=== PATIENT | female | born 1995 | race American Indian/Alaskan Native ===

== ENCOUNTER 2016-08-26 19:49 | Emergency (ER) | payer MEDICAID ==
[2016-08-26] MEDS ORDERED: ATIVAN ONE ×4 (20:30→22:26)
[2016-08-26] MEDS ORDERED: KEPPRA 1,000 MG/NS 0.75% 100ML 1,000 MG/100 ML BAG IV ONE (23:05)
== END 2016-08-26 23:15 | disposition left against medical advice (07) ==
LOC: ED 19:49 → MERGE 19:49 → ED 23:15
DX: Z00.8 Encounter for other general examination (principal); Z53.21 Procedure and treatment not carried out due to patient leaving prior to being seen by health care provider
CPT/HCPCS: J1953; J2060

== ENCOUNTER 2016-12-06 19:41 | Emergency (ER) | payer MEDICAID | END 2016-12-06 20:15 | disposition left against medical advice (07) | LOC: ED 19:41 | DX: M79.669 Pain in unspecified lower leg (principal); Z53.21 Procedure and treatment not carried out due to patient leaving prior to being seen by health care provider ==

== ENCOUNTER 2017-03-28 19:18 | Emergency (ER) | payer SELFPAY | END 2017-03-28 20:40 | disposition left against medical advice (07) | LOC: ED 19:18 | DX: R10.9 Unspecified abdominal pain (principal); Z53.21 Procedure and treatment not carried out due to patient leaving prior to being seen by health care provider ==

== ENCOUNTER 2017-05-15 16:55 | Emergency (ER) | payer SELFPAY ==
[2017-05-15 17:19] VITALS: BP 130/57
[2017-05-15 19:21] LABS: Bilirubin,Urine NEG (Negative); Blood,Urine NEG (Negative); Color,Urine Yellow (Yellow); Mucus,Urine FEW /HPF; Protein,Urine <15 mg/dL mg/dL (Negative); Urobilinogen,Urine < 2.0 mg/dL (<2.0)
[2017-05-15 19:25] LABS: HCG Qualitative,Urine Positive (Negative)
[2017-05-15] MEDS ORDERED: ZOFRAN ODT ONE (19:42)
--- NOTE | 2017-05-15 19:47 | Emergency Department Report ---
Vomiting/Diarrhea - HPI Chief Complaint: Nausea/Vomiting/Diarrhea Stated Complaint: N/V/D Time Seen by Provider: 05/15/17 19:22 Duration: 1 week Severity: mild Nausea/Vomiting Severity: Mild Diarrhea Severity: None Pain Severity: None Symptoms: Yes Able to Tolerate Fluids, No Watery Diarrhea, No Bloody diarrhea, No Fever, No Recent Unusual Foods, No Recent Untreated Water, No Recent use of Antibiotics, No Family w/ Similar Symptoms, No Contacts w/ Similar Symptoms, No Rash, No Hematuria, No Recent URI Symptoms Other History: This is a 22 y.o. female that presents with nausea and mild abdominal pain for 1 week. She took a test at home and it was positive. She think this could possibly be food poisioning because with both pregnancies she never had nausea w/o vomiting. She tried to f/u with [facility] and they would see her. She just saw them in March 2017 for PAP. LMP 2016. . Deneis vomiting, fever, chest pain, frequency, and urgency. ED Review of Systems ROS: Stated complaint: N/V/D Other details as noted in HPI Constitutional: denies: chills, fever Respiratory: denies: cough, shortness of breath, wheezing Cardiovascular: denies: chest pain, palpitations Gastrointestinal: abdominal pain, nausea. denies: vomiting, diarrhea, constipation Neurological: denies: headache, weakness, paresthesias ED Past Medical Hx - Past Medical History Previous Medical History?: Yes Hx Hypertension: No Hx Congestive Heart Failure: No Hx Diabetes: No Hx Deep Vein Thrombosis: No Hx Renal Disease: No Hx Sickle Cell Disease: No Hx Seizures: Yes Hx Psychiatric Treatment: (Anxiety) Hx Asthma: No Hx COPD: No Hx Dementia: No Hx HIV: No Additional medical history: vaginal delivery 2013, 2015 - Surgical History Past Surgical History?: No Additional Surgical History: unknown, no visible scars - Social History Smoking Status: Former Smoker Substance Use Type: Non Opiate Pain - Medications Home Medications: Home Medications Medication Instructions Recorded Confirmed Last Taken Type QUEtiapine [SEROquel] 200 mg PO QHS #30 tablet 08/29/16 Unknown Rx Sertraline [Zoloft] 50 mg PO QDAY #30 tablet 08/29/16 Unknown Rx Naproxen [Naprosyn TAB] 500 mg PO BID PRN #12 tablet 01/19/17 Unknown Rx Ondansetron [Zofran Odt] 4 mg PO Q8HR PRN #20 tab.rapdis 05/15/17 Unknown Rx Vomiting Diarrhea Exam - Exam General: Vital signs noted. No distress. Alert and acting appropriately. HEENT: Yes Moist Mucous Membranes, No Pharyngeal Erythema, No Pharyngeal Exudates, No Rhinorrhea, No Conjuctival Injection, No Frontal Tenderness, No Maxillary Tenderness Neck: No Adenopathy, No Rigidity Lungs: Yes Clear Lung Sounds, No Good Air Exchange, No Wheezes, No Stridor, No Cough, No Nasal Flaring, No Retractions, No Use of Accessory Muscles Heart exam: Regular: Yes, Murmur: No, Tachycardia: No Abdomen: Tenderness: No, Peritoneal Signs: No, Distention: No, Hyperactive Bowel sounds: No Skin exam: Rash: No, Edema: No, Normal turgor: Yes Neurologic: Alert and oriented, no deficits. Musculoskeletal: Unremarkable. ED Course Vital Signs 05/15/17 17:05 Temperature 98.3 F Pulse Rate 83 Respiratory 16 Rate Blood Pressure 130/57 O2 Sat by Pulse 99 Oximetry ED Medical Decision Making - Lab Data Result diagrams: 05/15/17 20:03 05/15/17 20:03 - Medical Decision Making This is a 22 y.o. female that presents with nausea and mild abdominal pain for 1 week. Home test positive. Patient concerned of possibly being food pensioned. Patient was examined by me. Obtained BMP, CBC, UA, and urine HCG. Positive HCG all other labs normal. Discussed results with patient. Given zofran odt 4 mg po in ER. Discharged home in stable condition. Start zofran 4 mg odt po . F/U with [facility]. Critical care attestation.: If time is entered above; I have spent that time in minutes in the direct care of this critically ill patient, excluding procedure time. ED Disposition Clinical Impression: confirmed by positive urine test, Nausea without vomiting Disposition: DC-01 TO HOME OR SELFCARE Is pt being admited?: No Does the pt Need Aspirin: No Condition: Stable Instructions: (ED), Morning Sickness (ED) Additional Instructions: Take zofran for nausea symptoms. Eat small frequent meals to avoid an empty stomach. Eat a snack before getting out of bed. Drink fluids 30 minutes before eating or 30 minutes after eating a meal. Incorporate rajendra into drinks or food (rajendra lollipops, rajendra tea, foods made with rajendra root or tea). Follow up with [facility] in 24-72 hours. Prescriptions: Ondansetron [Zofran Odt] 4 mg PO Q8HR PRN #20 tab.rapdis PRN Reason: Nausea Referrals: [facility] [Provider Group] - 3-5 Days SPARKLE KIRKLAND MD [Staff Physician] - 3-5 Days Time of Disposition: 20:34 Print Language: KOREAN
[2017-05-15] MEDS ORDERED: ZOFRAN ODT PO ONE (19:51)
[2017-05-15 20:15] LABS: Basophils % (Auto) 0.5 % (0.0-1.8); Eosinophils # (Auto) 0.3 K/mm3 (0.0-0.4); Eosinophils % (Auto) 3.1 % (0.0-4.3); Hematocrit 39.2 % (30.3-42.9); Hemoglobin 12.8 gm/dl (10.1-14.3); Lymphocytes # (Auto) 2.4 K/mm3 (1.2-5.4); Lymphocytes % (Auto) 26.1 % (13.4-35.0); Mean Corpuscular HGB Conc 33 % (30-34); Mean Corpuscular Hemoglobin 28 pg (28-32); Mean Corpuscular Volume 86 fl (79-97); Monocytes # (Auto) 0.6 K/mm3 (0.0-0.8); Monocytes % (Auto) 6.6 % (0.0-7.3); Platelet Count 287 K/mm3 (140-440); Red Blood Count 4.55 M/mm3 (3.65-5.03); Red Cell Distribution Width 14.3 % (13.2-15.2)
[2017-05-15 20:25] LABS: BUN/Creatinine Ratio 15; Blood Urea Nitrogen 9 mg/dL (7-17); Calcium 9.3 mg/dL (8.4-10.2); Hemolysis Index 10
== END 2017-05-15 20:42 | disposition home or self-care (01) ==
LOC: ED 16:55
DX: Z32.01 Encounter for pregnancy test, result positive (principal); R11.0 Nausea; F41.9 Anxiety disorder, unspecified; Z87.891 Personal history of nicotine dependence
CPT/HCPCS: 36415; 80048; 81001; 81025; 85025; 99283; Q0162

== ENCOUNTER 2017-05-26 23:55 | Emergency (ER) | payer SELFPAY ==
[2017-05-27 00:02] VITALS: BP 123/66
[2017-05-27 00:39] LABS: Bilirubin,Urine NEG (Negative); Blood,Urine NEG (Negative); Color,Urine Yellow (Yellow); Mucus,Urine FEW /HPF; Protein,Urine <15 mg/dL mg/dL (Negative); Urobilinogen,Urine < 2.0 mg/dL (<2.0)
[2017-05-27 00:45] LABS: Basophils # (Auto) 0.1 K/mm3 (0.0-0.1); Basophils % (Auto) 0.7 % (0.0-1.8); Eosinophils # (Auto) 0.2 K/mm3 (0.0-0.4); Eosinophils % (Auto) 2.8 % (0.0-4.3); Hematocrit 37.5 % (30.3-42.9); Hemoglobin 12.5 gm/dl (10.1-14.3); Lymphocytes # (Auto) 2.1 K/mm3 (1.2-5.4); Lymphocytes % (Auto) 23.8 % (13.4-35.0); Mean Corpuscular HGB Conc 34 % (30-34); Mean Corpuscular Hemoglobin 28 pg (28-32); Mean Corpuscular Volume 85 fl (79-97); Monocytes # (Auto) 0.6 K/mm3 (0.0-0.8); Platelet Count 275 K/mm3 (140-440); Red Blood Count 4.42 M/mm3 (3.65-5.03); Red Cell Distribution Width 14.8 % (13.2-15.2)
[2017-05-27 00:50] LABS: Alanine Aminotransferase 8 units/L (7-56); Albumin 3.9 g/dL (3.9-5); BUN/Creatinine Ratio 13; Blood Urea Nitrogen 8 mg/dL (7-17); Calcium 9.6 mg/dL (8.4-10.2); Hemolysis Index 2
== END 2017-05-27 03:30 | disposition left against medical advice (07) ==
LOC: ED 23:55
DX: O26.891 Other specified pregnancy related conditions, first trimester (principal); R10.2 Pelvic and perineal pain; O20.9 Hemorrhage in early pregnancy, unspecified; Z3A.10 10 weeks gestation of pregnancy
CPT/HCPCS: 36415; 80053; 81001; 84702; 85025; 86850; 86900; 86901

== ENCOUNTER 2017-06-10 15:52 | Emergency (ER) | payer MEDICAID ==
[2017-06-10 19:58] VITALS: BP 112/64
--- NOTE | 2017-06-10 20:15 | Emergency Department Report ---
Chief Complaint: Abdominal Pain Stated Complaint: 12 WKS PREG/ABD PAIN - HPI History of Present Illness: 22F p/w c/o lower abd cramping pain radiating to back, slight discharge as per pt for 2 weeks. Denies current bleeding. intermittent nausea - ROS Review of Systems: 12 weeks by LMP - Exam Vital Signs: Vital Signs 06/10/17 19:52 Temperature 97.5 F L Pulse Rate 80 Respiratory 20 Rate Blood Pressure 112/64 O2 Sat by Pulse 98 Oximetry Physical Exam: heart s1s2, AA0x3 MSE screening note: Focused history and physical exam performed. Due to findings the following was ordered: Screening Assessment/Plan/Differential Dx: Lower abdominal pain in 1- This initial assessment/diagnostic orders/clinical plan/ treatment(s) is/are subject to change based on pt's health status, clinical progression and re- assessment by fellow clinical providers in the ED. Further treatment and workup at subsequent clinical provers discretion. Patient/guardians urged not to elope from ED as their condition may be serious if not clinically assessed and managed. 2-basic labs, urinalysis, pelvic ultrasound transvaginal 3-patient has not yet had an ultrasound during this will obtain ultrasound today ED Disposition for MSE Condition: Stable Instructions: Abdominal Pain (ED)
[2017-06-10 20:17] LABS: Hematocrit 38.1 % (30.3-42.9); Hemoglobin 12.4 gm/dl (10.1-14.3); Mean Corpuscular HGB Conc 33 % (30-34); Mean Corpuscular Hemoglobin 28 pg (28-32); Mean Corpuscular Volume 86 fl (79-97); Platelet Count 286 K/mm3 (140-440); Red Blood Count 4.45 M/mm3 (3.65-5.03); Red Cell Distribution Width 14.3 % (13.2-15.2)
[2017-06-10 20:30] LABS: BUN/Creatinine Ratio 8; Blood Urea Nitrogen 5 mg/dL (7-17); Calcium 9.1 mg/dL (8.4-10.2); Hemolysis Index 20
[2017-06-10 23:08] LABS: Bacteria,Urine 1+ /HPF (Negative); Bilirubin,Urine NEG (Negative); Blood,Urine NEG (Negative); Color,Urine Yellow (Yellow); Mucus,Urine 3+ /HPF; Protein,Urine <15 mg/dL mg/dL (Negative)
--- NOTE | 2017-06-11 00:27 | Ultrasound Report ---
FINAL REPORT EXAM: US OB TRANSVAGINAL HISTORY: Pelvic pain w/ discharge TECHNIQUE: Transvaginal imaging was obtained of the pelvis. Doppler interrogation of the uterus and adnexa was obtained. FINDINGS: The uterus is anteverted measuring 11.7 cm x 6.9 cm x 8.4 cm. Within the uterus is a gestational sac which contains an embryo. There is also yolk sac. The crown-rump length is 29.8 mm. This corresponds to a 9 week 6 day IUP. The heart rate is 169 BPM. The cervix is closed. Free fluid is not seen. The left ovary is normal size contour blood flow and echotexture measuring 2.4 cm x 1.5 cm x 2.4 cm. The right ovary measures 3.3 cm x 1.7 cm x 2.6 cm. Within the right ovary is a hemorrhagic cyst measuring 1.7 cm in diameter compatible with corpus luteum cyst. IMPRESSION: Single viable IUP, 9 weeks 6 days. heart rate is 169 BPM. Right corpus luteum cyst measuring 1.7 cm in diameter. No evidence of free fluid.
--- NOTE | 2017-06-11 00:29 | Ultrasound Report ---
FINAL REPORT EXAM: US OB < = 14 WEEKS FETUS HISTORY: Pelvic pain w/ discharge TECHNIQUE: Transabdominal imaging was obtained of the pelvis. Doppler interrogation of the uterus and adnexa was obtained. FINDINGS: The uterus is anteverted measuring 11.7 cm x 6.9 cm x 8.4 cm. Within the uterus is a gestational sac which contains a pole and yolk sac. The crown-rump length is 28.9 mm corresponding to a 9 week 6 day IUP. The heart rate is 169 BPM. The cervix is closed. There is no evidence of subchorionic hemorrhage. The left ovary is normal size contour blood flow and echotexture measuring 2.4 cm x 1.5 cm x 2.4 cm. The right ovary measures 3.3 cm x 1.7 cm x 2.6 cm. Within the right ovary is a hemorrhagic cyst measuring 1.7 cm diameter compatible with a corpus luteum cyst. Free fluid is not seen IMPRESSION: Single viable IUP, nine weeks 6 days. The heart rate is 169 BPM. The cervix is closed. No evidence of free fluid. Right ovarian corpus luteum cyst measuring 1.7 cm in diameter.
--- NOTE | 2017-06-11 03:10 | Emergency Department Report ---
ED Female HPI - General Chief complaint: Abdominal Pain Stated complaint: 12 WKS PREG/ABD PAIN Time Seen by Provider: 06/11/17 02:45 Source: patient Mode of arrival: Ambulatory Limitations: No Limitations - History of Present Illness Initial comments: 22-year-old female presents with complaint of vaginal discharge and slight spotting slight crampy lower abdominal pain. Patient is awake alert and oriented 3 not in acute distress fully lucid. Awake alert and oriented 3. Primarily complaining of discharge and crampy pain. Also states she has a white discharge. Denies passage of any clots. States she has had some intermittent nausea for the last few weeks but is tolerating by mouth fluid and food without difficulty now. Denies any fevers or chills. MD Complaint: vaginal discharge Onset/Timin -: days(s) Severity scale (0 -10): 4 Quality: cramping Consistency: intermittent Improves with: none Are you Now?: Yes Last Menstrual Period: 03/22/17 EDC: 12/27/17 Associated Symptoms: vaginal discharge - Related Data Sexually active: Yes : 4 Para: 2 Previous Rx's Medication Instructions Recorded Last Taken Type QUEtiapine [SEROquel] 200 mg PO QHS #30 tablet 08/29/16 Unknown Rx Sertraline [Zoloft] 50 mg PO QDAY #30 tablet 08/29/16 Unknown Rx Naproxen [Naprosyn TAB] 500 mg PO BID PRN #12 tablet 01/19/17 Unknown Rx Ondansetron [Zofran Odt] 4 mg PO Q8HR PRN #20 tab.rapdis 05/15/17 Unknown Rx Acetaminophen [Acetaminophen TAB] 500 mg PO Q6HR PRN #30 tablet 06/11/17 Unknown Rx Clotrimazole [3-Day Vaginal Cream] 21 gm VG QHS #1 cream.appl 06/11/17 Unknown Rx Rosa M Root [Rosa M] 250 mg PO TID PRN #1 bottle 06/11/17 Unknown Rx Vit No.129/Iron/Folic 1 each PO QDAY #30 tablet 06/11/17 Unknown Rx [ Tablet] metroNIDAZOLE [Metronidazole] 500 mg PO BID #14 tablet 06/11/17 Unknown Rx Allergies Allergy/AdvReac Type Severity Reaction Status Date / Time No Known Allergies Allergy Unverified 01/19/17 14:53 ED Review of Systems ROS: Stated complaint: 12 WKS PREG/ABD PAIN Other details as noted in HPI Constitutional: denies: chills, fever Eyes: denies: eye pain, eye discharge, vision change ENT: denies: ear pain, throat pain Respiratory: denies: cough, shortness of breath, wheezing Cardiovascular: denies: chest pain, palpitations Endocrine: no symptoms reported Gastrointestinal: denies: abdominal pain, nausea, diarrhea Genitourinary: discharge. denies: urgency, dysuria Musculoskeletal: denies: back pain, joint swelling, arthralgia Skin: denies: rash, lesions Neurological: denies: headache, weakness, paresthesias Psychiatric: denies: anxiety, depression Hematological/Lymphatic: denies: easy bleeding, easy bruising ED Past Medical Hx - Past Medical History Previous Medical History?: No Hx Hypertension: No Hx Congestive Heart Failure: No Hx Diabetes: No Hx Deep Vein Thrombosis: No Hx Renal Disease: No Hx Sickle Cell Disease: No Hx Seizures: Yes Hx Psychiatric Treatment: (Anxiety) Hx Asthma: No Hx COPD: No Hx Dementia: No Hx HIV: No Additional medical history: vaginal delivery 2013, 2015 - Surgical History Past Surgical History?: No Additional Surgical History: unknown, no visible scars - Social History Smoking Status: Former Smoker - Medications Home Medications: Home Medications Medication Instructions Recorded Confirmed Last Taken Type QUEtiapine [SEROquel] 200 mg PO QHS #30 tablet 08/29/16 Unknown Rx Sertraline [Zoloft] 50 mg PO QDAY #30 tablet 08/29/16 Unknown Rx Naproxen [Naprosyn TAB] 500 mg PO BID PRN #12 tablet 01/19/17 Unknown Rx Ondansetron [Zofran Odt] 4 mg PO Q8HR PRN #20 tab.rapdis 05/15/17 Unknown Rx Acetaminophen [Acetaminophen TAB] 500 mg PO Q6HR PRN #30 tablet 06/11/17 Unknown Rx Clotrimazole [3-Day Vaginal Cream] 21 gm VG QHS #1 cream.appl 06/11/17 Unknown Rx Rosa M Root [Rosa M] 250 mg PO TID PRN #1 bottle 06/11/17 Unknown Rx Vit No.129/Iron/Folic 1 each PO QDAY #30 tablet 06/11/17 Unknown Rx [ Tablet] metroNIDAZOLE [Metronidazole] 500 mg PO BID #14 tablet 06/11/17 Unknown Rx ED Physical Exam - General Limitations: No Limitations General appearance: alert, in no apparent distress - Head Head exam: Present: atraumatic, normocephalic - Eye Eye exam: Present: normal appearance, PERRL, EOMI - ENT ENT exam: Present: mucous membranes moist - Neck Neck exam: Present: normal inspection - Respiratory Respiratory exam: Present: normal lung sounds bilaterally. Absent: respiratory distress - Cardiovascular Cardiovascular Exam: Present: regular rate, normal rhythm. Absent: systolic murmur, diastolic murmur, rubs, gallop - GI/Abdominal GI/Abdominal exam: Present: soft, normal bowel sounds - External exam: Present: normal external exam Speculum exam: Present: vaginal discharge (White vaginal discharge no bleeding) Bi-manual exam: Present: normal bi-manual exam (no cervical motion or adnexal tenderness on exam) - Extremities Exam Extremities exam: Present: normal inspection - Back Exam Back exam: Present: normal inspection - Neurological Exam Neurological exam: Present: alert, oriented X3, CN II-XII intact, normal gait - Psychiatric Psychiatric exam: Present: normal affect, normal mood - Skin Skin exam: Present: warm, dry, intact, normal color. Absent: rash ED Course Vital Signs 06/10/17 06/11/17 19:52 04:07 Temperature 97.5 F L Pulse Rate 80 87 Respiratory 20 16 Rate Blood Pressure 112/64 O2 Sat by Pulse 98 99 Oximetry ED Medical Decision Making - Lab Data Result diagrams: 06/10/17 20:04 06/10/17 20:04 - Medical Decision Making A/P: Threatened miscarriage, vaginal candidiasis, bacterial vaginosis 1-empiric metronidazole and vaginal clotrimazole cream, wet prep shows BV and yeast 2-ultrasound shows IUP at 9 weeks, patient is Rh+ 3- vitamins, follow-up with [facility] 4-GC culture sent Critical care attestation.: If time is entered above; I have spent that time in minutes in the direct care of this critically ill patient, excluding procedure time. ED Disposition Clinical Impression: Vaginal bleeding during , Bacterial vaginosis, Yeast infection of the vagina Disposition: - TO HOME OR SELFCARE Is pt being admited?: No Does the pt Need Aspirin: No Condition: Stable Instructions: Threatened Miscarriage (ED), Bacterial Vaginosis (ED), Abdominal Pain (ED) Prescriptions: Clotrimazole [3-Day Vaginal Cream] 21 gm VG QHS #1 cream.appl Acetaminophen [Acetaminophen TAB] 500 mg PO Q6HR PRN #30 tablet PRN Reason: Pain Rosa M Root [Rosa M] 250 mg PO TID PRN #1 bottle PRN Reason: Nausea metroNIDAZOLE [Metronidazole] 500 mg PO BID #14 tablet Vit No.129/Iron/Folic [ Tablet] 1 each PO QDAY #30 tablet Referrals: [facility] [Provider Group] - 3-5 Days [facility] [Provider Group] - 3-5 Days Forms: STI Treatment and Prevention, Work/School Release Form(ED) Time of Disposition: 03:50
== END 2017-06-11 04:07 | disposition home or self-care (01) ==
LOC: ED 15:52
DX: O46.91 Antepartum hemorrhage, unspecified, first trimester (principal); O23.591 Infection of other part of genital tract in pregnancy, first trimester; Z3A.09 9 weeks gestation of pregnancy; Z87.891 Personal history of nicotine dependence
CPT/HCPCS: 36415; 76801; 76817; 80048; 81001; 84702; 85027; 86850; 86900; 86901; 87210; 87591; 99284

== ENCOUNTER 2017-10-15 11:50 | Outpatient (CLI) | payer MEDICAID ==
[2017-10-15] MEDS ORDERED: CELESTONE SOLUSPAN IM SCH (12:00)
[2017-10-15 12:25] VITALS: BP 110/57
== END 2017-10-15 12:34 | disposition home or self-care (01) ==
LOC: TRG 11:50
PROVIDERS: ATTEND Obstetrics & Gynecology
DX: O47.02 False labor before 37 completed weeks of gestation, second trimester (principal); Z3A.28 28 weeks gestation of pregnancy
CPT/HCPCS: 96372; J0702

== ENCOUNTER 2017-10-28 15:32 | Observation (INO) | payer MEDICAID ==
[2017-10-28] MEDS ORDERED: LACTATED RINGERS 1,000 ML ONE (16:20)
[2017-10-28] MEDS ORDERED: BRETHINE SUB-Q ONE (17:25)
[2017-10-28 17:26] LABS: Bilirubin,Urine NEG (Negative); Blood,Urine NEG (Negative); Color,Urine Amber (Yellow); Mucus,Urine 3+ /HPF
[2017-10-28] MEDS ORDERED: LACTATED RINGERS 1,000 ML IV ONE (17:33)
[2017-10-28] MEDS ORDERED: LACTATED RINGERS 1,000 ML IV SCH ×2 (18:00→23:00)
[2017-10-28 19:58] VITALS: BP 120/73
[2017-10-28] MEDS ORDERED: CELESTONE SOLUSPAN IM ONE (21:59)
[2017-10-28] MEDS ORDERED: BENADRYL PO PRN (22:17)
[2017-10-28] MEDS ORDERED: ZOFRAN IV PRN (22:17)
[2017-10-28] MEDS ORDERED: MYLICON PO PRN (22:17)
[2017-10-28] MEDS ORDERED: TYLENOL PO PRN (22:17)
[2017-10-28] MEDS ORDERED: ALUM-MAG HYDROX-SIMETH 200-200-20MG/5ML PO PRN (22:17)
[2017-10-28] MEDS ORDERED: COLACE PO PRN (22:17)
[2017-10-28] MEDS ORDERED: AMBIEN PO PRN (22:17)
[2017-10-28] MEDS ORDERED: MILK OF MAGNESIA PO PRN (22:17)
--- NOTE | 2017-10-28 22:17 | Event Note ---
Date: 10/28/17 Patient is a 22 yo at 33 weeks was sent over to the triage for further evaluation for contractions.Per the patient she was seen at another facility out of town and given one dose bmz over the weekend. I performed a FFN which was positive ( also note positive last month). The nurse checked her cervix and it was noted to be 1cm from closed earlier in appt. She was instruceted to stay for Mag, Ivf, and bmz ( full dose), and MFMF consult. Nurse called prior to starting prearranged orders and stated that she did not want medication as she is religious and refuses any meds. I discussed risk to her baby for prematuriity and . She understands and desires to leave. She stated that she will receive bmz but adamently declines mag, procardia and any other medication to assist in stopping labor. We will contact Peds if mother agrees to discuss the detriment to her baby being born so prematurely. Patient has strong hx of at 32 weeks in previous . Patient has been [facility]compliant [facility] in recent weeks. She desires to sign out AMA. She will return tomorrow for second dose of bmz.
[2017-10-29] MEDS ORDERED: PRENATAL VITAMIN PO SCH (10:00)
== END 2017-10-28 22:54 | disposition left against medical advice (07) ==
LOC: TRG 15:32 → UNDOADMOB 16:05 → LD 16:05
PROVIDERS: ADMIT Obstetrics & Gynecology; ATTEND Obstetrics & Gynecology
DX: O62.9 Abnormality of forces of labor, unspecified (principal); Z3A.30 30 weeks gestation of pregnancy
CPT/HCPCS: 36415; 59025; 81001; 82731; 96360; 96361; G0378; J7120; J0702

== ENCOUNTER 2017-11-05 11:40 | Outpatient (CLI) | payer MEDICAID ==
[2017-11-05] MEDS ORDERED: LACTATED RINGERS 500 ML IV ONE (12:02)
[2017-11-05] MEDS ORDERED: BRETHINE SUB-Q SCH (13:00)
[2017-11-05 13:52] LABS: Bilirubin,Urine NEG (Negative); Blood,Urine NEG (Negative); Color,Urine Yellow (Yellow); Mucus,Urine 3+ /HPF; Protein,Urine <15 mg/dL mg/dL (Negative)
== END 2017-11-05 13:06 | disposition home or self-care (01) ==
LOC: TRG 11:40
PROVIDERS: ATTEND Obstetrics & Gynecology
DX: O47.03 False labor before 37 completed weeks of gestation, third trimester (principal); Z3A.31 31 weeks gestation of pregnancy
CPT/HCPCS: 36415; 59025; 81001; 82731

== ENCOUNTER 2017-12-11 11:12 | Outpatient (CLI) | payer MEDICAID ==
[2017-12-11 12:05] VITALS: BP 114/74
[2017-12-11] MEDS ORDERED: TYLENOL PO PRN (12:30)
[2017-12-11] MEDS ORDERED: LACTATED RINGERS 500 ML IV ONE (13:01)
== END 2017-12-11 12:44 | disposition home or self-care (01) ==
LOC: TRG 11:12
PROVIDERS: ATTEND Obstetrics & Gynecology
DX: O47.03 False labor before 37 completed weeks of gestation, third trimester (principal); Z3A.37 37 weeks gestation of pregnancy
CPT/HCPCS: 59025

== ENCOUNTER 2017-12-17 14:05 | Outpatient (CLI) | payer MEDICAID ==
[2017-12-17 14:34] VITALS: BP 105/68
[2017-12-17] MEDS ORDERED: LACTATED RINGERS 500 ML IV ONE (16:32)
[2017-12-17 20:42] LABS: Bilirubin,Urine NEG (Negative); Blood,Urine NEG (Negative); Color,Urine Yellow (Yellow); Protein,Urine <15 mg/dL mg/dL (Negative); Urobilinogen,Urine < 2.0 mg/dL (<2.0); WBC,Urine < 1.0 /HPF (0.0-6.0)
--- NOTE | 2017-12-17 21:06 | Ultrasound Report ---
FINAL REPORT PROCEDURE: US OB LIMITED TECHNIQUE: Real-time limited sonographic examination was performed for evaluation of amniotic fluid for each fetus with image documentation (1 or more fetuses). CPT 53647 HISTORY: Non reassurring Heart Tracing COMPARISON: No prior studies are available for comparison. FINDINGS: There is a single intrauterine gestation with a heart rate of 143 beats per minute. Amniotic fluid index is 12.7 centimeters IMPRESSION: Amniotic fluid index is within normal limits
--- NOTE | 2017-12-17 21:18 | Ultrasound Report ---
FINAL REPORT PROCEDURE: US OB BPP WO NON-STRESS TECHNIQUE: Sonographic evaluation for breathing, movement, tone, and amniotic fluid volume was performed. CPT 79035 HISTORY: Non Reassurring Heart Tracing COMPARISON: No prior studies are available for comparison. FINDINGS: Single intrauterine gestation is noted with a heart rate of 143 beats per minute. Amniotic fluid volume: Normal-score 2. At least one vertical pocket > 2 cm or more in vertical axis. breathing: Normal-score 2. movement: Normal-score 2. tone: Normal. Score: 8 of 8. IMPRESSION: Normal biophysical profile.
== END 2017-12-17 21:05 | disposition home or self-care (01) ==
LOC: TRG 14:05
PROVIDERS: ATTEND Obstetrics & Gynecology
DX: O47.03 False labor before 37 completed weeks of gestation, third trimester (principal); Z3A.37 37 weeks gestation of pregnancy
CPT/HCPCS: 59025; 76815; 76819; 81001; 96360; J7120

== ENCOUNTER 2017-12-20 12:07 | Inpatient (IN) | payer MEDICAID ==
[2017-12-20] MEDS ORDERED: SUBLIMAZE IV PRN (15:47)
[2017-12-20] MEDS ORDERED: XYLOCAINE 2% INFILTRATI ONE (15:47)
[2017-12-20] MEDS ORDERED: STADOL IV PRN (15:47)
[2017-12-20] MEDS ORDERED: BRETHINE SUB-Q PRN (15:47)
[2017-12-20] MEDS ORDERED: BRETHINE IVP PRN (15:47)
[2017-12-20] MEDS ORDERED: MINERAL OIL PO PRN (15:47)
[2017-12-20] MEDS ORDERED: NARCAN 0.4 MG/1 ML IV PRN (15:47)
[2017-12-20] MEDS ORDERED: ZOFRAN IV PRN (15:47)
--- NOTE | 2017-12-20 15:48 | Ultrasound Report ---
FINAL REPORT EXAM: US OB LIMITED HISTORY: ANGELICA TECHNIQUE: Transabdominal sonography of the pelvis. PRIORS: 17 December 2017 FINDINGS: Limited examination performed for ANGELICA determination only. There is a single, live intrauterine in cephalic presentation. heart motion is detected and heart rate is 152 beats per minute. Amniotic fluid index is 18 cm. IMPRESSION: 1. Single, live intrauterine . 2. ANGELICA as noted above.
--- NOTE | 2017-12-20 15:49 | Ultrasound Report ---
FINAL REPORT EXAM: US OB BPP WO NON-STRESS HISTORY: WELLBEING TECHNIQUE: Transabdominal sonography of the pelvis. PRIORS: 17 December 2017. FINDINGS: Biophysical profile: breathing movements: 0/2 movements: 2/2 posture and tone: 2/2 Qualitative amniotic fluid volume: 2/2 Total: 6/8 heart rate 148 beats per minute. IMPRESSION: 1. Biophysical profile as noted above.
[2017-12-20] MEDS ORDERED: POLYCILLIN/NS 2 GM/100 ML 2 GM/100 ML BAG IV ONE (15:56)
[2017-12-20] MEDS ORDERED: PITOCin/NS 20 UNIT/1000ML DRIP 20 UNITS/1,000 ML BAG IV SCH (16:00)
[2017-12-20 16:31] LABS: Hemoglobin 11.1 gm/dl (10.1-14.3); Mean Corpuscular HGB Conc 34 % (30-34); Mean Corpuscular Hemoglobin 28 pg (28-32); Mean Corpuscular Volume 83 fl (79-97); Platelet Count 240 K/mm3 (140-440); Red Blood Count 3.98 M/mm3 (3.65-5.03)
[2017-12-20] MEDS: LACTATED RINGERS 1,000 ML IV SCH ×3 (17:47→21:48)
[2017-12-20] MEDS: PITOCin/NS 30 UNIT/500ML 30 UNITS/500 ML BAG IV SCH ×2 (17:53→18:46)
--- NOTE | 2017-12-20 19:57 | History and Physical Report ---
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 She reports irregular contractions and denies leakage of fluid or vaginal bleeding. She has had care at [facility] since 22 wks complicated by late entry to care at 22 wks, h/o 32 wk delivery after PPROM, genital herpes on Valtrex with no lesions or prodrome, positive fibronectin on 09/24/17 s/p steroids beginning 10/14/17, and admission for contractions at [facility] (10/31/17-11/01/17). She is GBS positive. 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 Family/Genetic History: none Social history: no significant social history - Obstetrical History Expected Date of Delivery: 01/03/18 Actual Gestation: 38 Week(s) 1 Day(s) : 3 Para: 2 Hx # Term Pregnancies: 1 Number of Pregnancies: 1 Spontaneous Abortions: 0 Induced : 0 Number of Living Children: 2 Medications and Allergies Allergies Allergy/AdvReac Type Severity Reaction Status Date / Time No Known Allergies Allergy Verified 10/28/17 16:03 Home Medications Medication Instructions Recorded Confirmed Last Taken Type Vit No.129/Iron/Folic 1 each PO QDAY #30 tablet 06/11/17 10/28/1710/28 09:00 Rx [ Tablet] Active Meds: Active Medications Butorphanol Tartrate (Stadol) 2 mg IV Q2H PRN PRN Reason: Pain , Severe (7-10) Ephedrine Sulfate (Ephedrine Sulfate) 10 mg IV Q2M PRN PRN Reason: Hypotension Fentanyl (Sublimaze) 100 mcg IV Q2H PRN PRN Reason: Labor Pain Ampicillin Sodium (Ampicillin/Ns 1 Gm/50 Ml) 1 gm in 50 mls @ 100 mls/hr IV Q4H FLACO; Protocol Lactated Ringer's (Lactated Ringers) 1,000 mls @ 125 mls/hr IV DIRECT FLACO Last Admin: 12/20/17 17:47 Dose: 125 mls/hr Oxytocin/Sodium Chloride (Pitocin/Ns 20 Unit/1000ml Drip) 20 units in 1,000 mls @ 125 mls/hr IV DIRECT FLACO Oxytocin/Sodium Chloride (Pitocin/Ns 30 Unit/500ml) 30 units in 500 mls @ 4 mls /hr IV TITR FLACO; Protocol Last Admin: 12/20/17 18:46 Dose: 8 ml/hr, 8 mls/hr Mineral Oil (Mineral Oil) 30 ml PO QHS PRN PRN Reason: Constipation Naloxone HCl (Narcan 0.4 Mg/1 Ml) 0.1 mg IV Q2MIN PRN PRN Reason: Res Rate </= 8 or 02 SAT < 92% Ondansetron HCl (Zofran) 4 mg IV Q8H PRN PRN Reason: Nausea And Vomiting Terbutaline Sulfate (Brethine) 0.25 mg SUB-Q ONCE PRN PRN Reason: Hyperstimulation/Hypertonicity Terbutaline Sulfate (Brethine) 0.25 mg IVP ONCE PRN PRN Reason: Hyperstimulation/Hypertonicity Review of Systems All systems: negative - Vital Signs Vital signs: Vital Signs Pulse Pulse Ox 122 H 99 12/20/17 12:49 12/20/17 12:49 Temp Pulse Resp BP Pulse Ox 99.5 F 78 20 100/59 99 12/20/17 19:35 12/20/17 19:35 12/20/17 19:35 12/20/17 19:35 12/20/17 12:49 - Physical Exam Breasts: Positive: deferred Cardiovascular: Regular rate Lungs: Positive: Clear to auscultation Abdomen: Positive: soft (gravid ) Genitourinary (Female): Positive: normal external genitalia Uterus: Positive: enlarged (gravid ) Extremities: Positive: normal Results Result Diagrams: 12/20/17 16:16 All other labs normal. Assessment and Plan A: IUP at 38w1d BPP 6/10 Genital Herpes without lesion or prodrome H/o PPROM, delivery, + FFN and contractions this GBS Positive P: Admit to labor and delivery Pitocin induction Monitor maternal and status
[2017-12-20] MEDS ORDERED: NARCAN 2 MG/2 ML IV PRN (21:36)
--- NOTE | 2017-12-20 21:37 | Anesthesia Consultation ---
Anesthesia Consult and Med Hx Date of service: 12/20/17 - Airway Anesthetic Teeth Evaluation: Good ROM Head & Neck: Adequate Mental/Hyoid Distance: Adequate Mallampati Class: Class II Intubation Access Assessment: Probably Good - Pulmonary Exam CTA: Yes - Cardiac Exam Cardiac Exam: RRR - Pre-Operative Health Status ASA Pre-Surgery Classification: ASA2 Proposed Anesthetic Plan: Epidural - Pulmonary Hx Asthma: No COPD: No Hx Pneumonia: No - Cardiovascular System Hx Hypertension: No - Central Nervous System Hx Seizures: No CVA: No Hx Psychiatric Problems: No - Endocrine Hx Renal Disease: No Hx End Stage Renal Disease: No Hx Hypothyroidism: No Hx Hyperthyroidism: No - Hematic Hx Anemia: No Hx Sickle Cell Disease: No - Other Systems Hx Alcohol Use: No Hx Substance Use: Yes (Marijuana) Hx Cancer: No
[2017-12-20] MEDS: AMPICILLIN/NS 1 GM/50 ML 1 GM/50 ML BAG IV SCH (21:46)
[2017-12-20] MEDS ORDERED: fentaNYL-BUPIV 2 MCG/ML-0.125% 200 MCG/100 ML BAG EPIDURAL SCH (22:00)
--- NOTE | 2017-12-21 01:44 | Event Note ---
Date: 12/21/17 Pt comfortable with epidural. Category II tracing. SVE: /-3. Continue pitocin induction. Closely monitor clinical status.
[2017-12-21] MEDS: AMPICILLIN/NS 1 GM/50 ML 1 GM/50 ML BAG IV SCH ×2 (01:47→06:05)
[2017-12-21] MEDS: LACTATED RINGERS 1,000 ML IV SCH (01:48)
--- NOTE | 2017-12-21 07:13 | Event Note ---
Date: 12/21/17 Pt very uncomfortable as epidural medication delayed from pharmacy. Cervix / -3. AROM-clear fluid. Continue routine care.
[2017-12-21] MEDS ORDERED: XYLOCAINE MPF 2% ONE ×7 (07:14→10:49)
[2017-12-21] MEDS ORDERED: PEPCID IV ONE ×2 (09:29→09:37)
[2017-12-21] MEDS ORDERED: REGLAN IV ONE (09:29)
[2017-12-21] MEDS ORDERED: BICITRA PO ONE (09:29)
[2017-12-21] MEDS ORDERED: REGLAN ONE (09:37)
[2017-12-21] MEDS ORDERED: BICITRA ONE (09:37)
[2017-12-21] MEDS ORDERED: ANCEF/STERILE WATER 2 GM/20 ML 2 GM/20 ML SYRINGE IV NR (10:00)
[2017-12-21] MEDS ORDERED: LACTATED RINGERS 1,000 ML IV SCH (10:00)
[2017-12-21] MEDS ORDERED: PITOCin/NS 20 UNIT/1000ML DRIP 20 UNITS/1,000 ML BAG IV SCH (10:00)
[2017-12-21] MEDS ORDERED: NACL 0.9% IR ONE (10:25)
[2017-12-21] MEDS ORDERED: WATER FOR IRRIG STERILE IR ONE (10:25)
[2017-12-21] MEDS ORDERED: METHERGINE IM ONE (10:40)
[2017-12-21] MEDS ORDERED: VERSED ONE (10:53)
[2017-12-21] MEDS ORDERED: SUBLIMAZE ONE (10:54)
--- NOTE | 2017-12-21 11:39 | Procedure Note ---
OB Delivery Note - Delivery Date of Delivery: 12/21/17 Surgeon: JUDIE SALAS Estimated blood loss: other (1200 mL) - Section Preop diagnosis: nonreassuring FHR tracing, desires sterilization Postop diagnosis: same section procedure: section, primary low transverse, bilateral tubal ligation Disposition: PACU Complications: intra-op hemorrhage, uterine atony Narrative: Please see operative report. - A at 1 minute: 8 at 5 minutes: 9 Infant Gender: Female (2792g (6lb 2.4 oz) @ 1047 am)
--- NOTE | 2017-12-21 11:45 | Operative Report ---
Operative Report Operative Report: Date of procedure: December 21, 2017 Preoperative diagnosis: 1) IUP at 38w1d 2) Nonreassuring status- repetitive late deceleratiosn 3) Multiparity desires permanent sterilization Postoperative diagnosis: Same Procedure: 1) Primary low transverse section 2) Bilateral Tubal Occlusion via Filshie Clip Method Surgeon: Renetta Palacios M.D. Anesthesia: Epidural Findings: 1) Viable female , Apgars 8 and 9, weight 2792g, (6 lb 2.4 oz) in cephalic presentation. Nuchal cord x 1 2) Normal-appearing uterus ovaries and tubes Estimated blood loss: 1200 mL IV fluids: 1500 mL Urine output: 300 mL, clear at the end of the procedure Drains: Stinson to gravity Specimens: Placenta to pathology Complications: Uterine atony, intraoperative hemorrhage Medications: Additional 20 units of pitocin in IV fluids, Methergine 0.2 mg IM Disposition: Stable to PACU Indication for procedure: Pt is a 22 year old -[place] female at 38 wks admitted for delivery secondary to BPP 09/01. She progressed to 5 cm, but began to have repetetive late decelerations. She does not desire future fertility. The decision was made to proceed with delivery. Operation in detail: After the risks, benefits, alternatives and complications were explained to the patient she gave informed consent for the procedure. She was subsequently taken to the operating room where epidural anesthesia was noted to be adequate. She was subsequently placed in the dorsal supine position with leftward tilt and prepped and draped in a normal sterile fashion. heart tones were noted to be in the 130s prior to incision. A timeout was performed. A Pfannenstiel skin incision was made with the knife and carried down to the layer of the fascia with the Bovie. The fascia was incised in the midline and the fascial incision was extended bilaterally with the Bovie. Attention was then turned to the superior aspect of the incision which was grasped with two Kochers, tented up, and dissected off the rectus muscles. Attention was then turned to the inferior aspect of the incision which was grasped with two Kochers , tented up and dissected off the rectus muscles. The rectus muscles were then in the midline and partially transected for adequate visualization. The peritoneum was then entered bluntly. The peritoneal incision was extended with good visualization of the bladder. The peritoneal incision was then stretched. An Juanjose self-retaining retractor was placed for visualization. The bladder blade was placed. The vesicouterine peritoneum was grasped with smooth pickups and incised with Metzenbaum scissors. Metzenbaum scissors were used to extend the incision bilaterally. The bladder flap was then created digitally and the bladder blade was replaced. A transverse incision was made in the lower uterine segment with a knife and extended bilaterally with the bandage scissors. The head was delivered without difficulty, nuchal cord x 1 was reduced, followed by delivery of the shoulders and body. was bulb suctioned at delivery. The cord was clamped and cut and the was handed to NICU staff in attendance. The placenta was then delivered manually. The uterus was noted to be atonic despite pitocin administration so she was given an additional 20 units of pitocin in her IVF and Methergine 0.2 mg IM. There was a modest improvement in her uterine tone. The uterus was then exteriorized and cleared of all clots and debris. The hysterotomy was then reapproximated with 0 Vicryl in a running locked fashion. A second layer of the same suture was used in imbricating fashion. An additional figure of eight of 2-0 Vicryl was placed at the right apex of the hysterotomy to obtain hemostasis. Attention was then turned to the tubal ligation. Due to the heavy bleeding during skin entry and intrabdominal hemorrhage, the decision was made to ligate the fallopian tubes with Filshie Clips. The right tube was identified and followed to to the fimbriae. The tube was then grasped with a Wanda and ligated with two Filshie clips across the ampulla of the fallopian tube. Attention was then turned to the left tube which in a similar fashion was followed down to the fimbriae, grasped with a Wanda, and ligated using two Filshie clips across of ampulla of the fallopian tube. Hemostasis was noted. The hysterotomy was inspected and hemostasis was noted. The uterus was then returned to the peritoneal cavity. All instruments were removed from the abdominal cavity. The gutters were irrigated and cleared of all clots and debris. The hysterotomy was again inspected and noted to be hemostatic. Surgicel was then placed over the hysterotomy. Interceed was placed on the anterior surface of the uterus. The peritoneum was reapproximated with 2-0 Vicryl in a running fashion incorporating the rectus muscles. The cut surface of the muscles was covered with Surgicel. The fascia was reapproximated with 0 Vicryl in a running fashion. The skin was reapproximated with cesar. The incision was then covered with a pressure dressing. The procedure was then ended. The patient tolerated the procedure well and was taken to the PACU in stable condition. All instrument, lap, and needle counts were correct 3. A CBC and coags will be ordered in the PACU.
[2017-12-21] MEDS ORDERED: NACL 0.9% 500 ML 500 ML IV SCH (11:56)
[2017-12-21] MEDS ORDERED: MORPHINE IM PRN (11:57)
[2017-12-21] MEDS ORDERED: PHENERGAN PO PRN (12:02)
[2017-12-21] MEDS ORDERED: MORPHINE IV PRN (12:02)
[2017-12-21] MEDS ORDERED: PHENERGAN PR PRN (12:02)
[2017-12-21] MEDS ORDERED: NARCAN 0.4 MG/1 ML IV PRN ×3 (12:02→14:35)
[2017-12-21] MEDS ORDERED: ZOFRAN IV PRN ×3 (12:02→14:35)
[2017-12-21 12:20] LABS: Hematocrit 31.9 % (30.3-42.9); Hemoglobin 10.3 gm/dl (10.1-14.3); Mean Corpuscular HGB Conc 32 % (30-34); Mean Corpuscular Hemoglobin 27 pg (28-32); Mean Corpuscular Volume 84 fl (79-97); Platelet Count 221 K/mm3 (140-440); Red Blood Count 3.81 M/mm3 (3.65-5.03); Red Cell Distribution Width 13.9 % (13.2-15.2)
[2017-12-21] MEDS ORDERED: BENADRYL IV PRN (12:21)
[2017-12-21 12:35] LABS: INR 1.05 (0.87-1.13)
[2017-12-21 12:36] LABS: Partial Thromboplastin Time 28.8 Sec. (24.2-36.6)
[2017-12-21] MEDS: MORPHINE IV PRN ×4 (12:50→23:56)
[2017-12-21] MEDS ORDERED: SODIUM CHLORIDE FLUSH SYRINGE 10 ML IV NR (13:00)
[2017-12-21] MEDS ORDERED: fentaNYL-BUPIV 2 MCG/ML-0.125% 200 MCG/100 ML BAG EPIDURAL SCH (13:00)
[2017-12-21] MEDS ORDERED: MORPHINE PCA 30MG/30ML IV SCH (13:00)
[2017-12-21] MEDS ORDERED: MILK OF MAGNESIA PO PRN (14:35)
[2017-12-21] MEDS ORDERED: LANSINOH TP PRN (14:35)
[2017-12-21] MEDS ORDERED: TUCKS PAD TP PRN (14:35)
[2017-12-21] MEDS ORDERED: SODIUM CHLORIDE FLUSH SYRINGE 10 ML IV SCH (14:35)
[2017-12-21] MEDS: D5LR 1,000 ML IV SCH (18:38)
[2017-12-21] MEDS: ANCEF/NS 1 GM/50 ML 1 GM/50 ML BAG IV SCH (18:39)
[2017-12-22] MEDS: ANCEF/NS 1 GM/50 ML 1 GM/50 ML BAG IV SCH (02:02)
[2017-12-22] MEDS: PERCOCET 5/325 PO PRN ×4 (02:14→19:29)
[2017-12-22] MEDS: D5LR 1,000 ML IV SCH ×2 (02:39→12:15)
[2017-12-22] MEDS: MORPHINE IV PRN (04:28)
[2017-12-22] MEDS ORDERED: BOOSTRIX IM ONE (06:00)
[2017-12-22] MEDS: FEOSOL PO SCH (11:00)
[2017-12-22] MEDS: MYLICON PO PRN ×2 (11:02→22:10)
[2017-12-22] MEDS ORDERED: M-M-R II VACCINE SUB-Q ONE (12:25)
[2017-12-22] MEDS ORDERED: BENADRYL PO PRN (12:42)
--- NOTE | 2017-12-22 12:49 | Progress Note ---
Assessment and Plan A: POD#1 s/p primary section at term complicated by uterine atony and intrapartum hemorrhage, Suboptimal pain control P: Repeat CBC now. Initiate Toradol x 24 hrs in addition to Percocet as needed. Closely monitor clinically. Subjective - Subjective Date of service: 12/22/17 Principal diagnosis: s/p primary Interval history: Pt c/o poor pain control and itching overnight. Minimal lochia reported by nurse. Patient reports: appetite normal, voiding normally, flatus, pain poorly controlled, ambulating normally, no bowel movement [place]: doing well Objective - Vital Signs Latest vital signs: Vital Signs Temp Pulse Resp BP BP Pulse Ox 12/22/17 08:20 98.4 F 93 H 18 101/62 12/22/17 05:57 18 12/22/17 05:17 98.3 F 54 L 18 104/53 12/22/17 04:28 18 12/22/17 02:14 20 12/21/17 23:56 18 12/21/17 23:40 18 12/21/17 23:36 98.2 F 92 H 20 114/73 12/21/17 23:05 18 12/21/17 21:38 94 F L 94 H 18 111/77 12/21/17 21:37 20 12/21/17 19:35 20 12/21/17 19:00 22 97 12/21/17 14:19 97.8 F 107 H 22 122/80 12/21/17 13:15 114 H 24 124/78 100 12/21/17 13:00 111 H 21 126/85 100 Intake and Output 12/21/17 12/22/17 12/22/17 22:59 06:59 14:59 Intake Total 175 1480 1360 Output Total 4000 Balance 175 -2520 1360 Intake: IV 175 1000 1000 ANCEF/NS 1 GM/50 ML 1 gm 50 In 50 ml @ 100 mls/hr IV Q8H FLACO Rx#:[id number] D5lr 1,000 ml @ 125 mls/ 1000 1000 hr IV DIRECT FLACO Rx#: [id number] Left Hand 125 Oral 360 Intake, Free Water 480 Output: Urine 4000 Indwelling Catheter 2600 Void 1400 Other: Total, Intake Amount 360 Total, Output Amount 900 Estimated Blood Loss 1,200 - Exam Breasts: Present: deferred Cardiovascular: Present: Regular rate Lungs: Present: Clear to auscultation Abdomen: Present: soft, tenderness Uterus: Present: firm, fundal height above umbilicus Extremities: Present: normal Incision: Present: dressed - Labs Labs: Abnormal lab results 12/20/17 Range/Units 16:20 Crossmatch See Detail
[2017-12-22 13:12] LABS: Hematocrit 26.4 % (30.3-42.9); Hemoglobin 8.5 gm/dl (10.1-14.3); Mean Corpuscular HGB Conc 32 % (30-34); Mean Corpuscular Hemoglobin 27 pg (28-32); Mean Corpuscular Volume 83 fl (79-97); Platelet Count 200 K/mm3 (140-440); Red Blood Count 3.19 M/mm3 (3.65-5.03); Red Cell Distribution Width 13.9 % (13.2-15.2)
[2017-12-22] MEDS: TORADOL IV SCH ×2 (14:51→21:56)
[2017-12-23] MEDS: MYLICON PO PRN ×2 (03:15→10:30)
[2017-12-23] MEDS: TORADOL IV SCH ×2 (03:17→10:27)
[2017-12-23] MEDS: PERCOCET 5/325 PO PRN ×2 (08:11→20:03)
--- NOTE | 2017-12-23 08:42 | Progress Note ---
Assessment and Plan A: POD#2 s/p primary section at term complicated by uterine atony and intrapartum hemorrhage, Suboptimal pain control P: doing well pain controlled ambulating well iron bid for anemia ( acute) continue orders Subjective - Subjective Date of service: 12/23/17 Principal diagnosis: s/p primary Patient reports: appetite normal, voiding normally, pain well controlled, flatus , ambulating normally : doing well Objective - Vital Signs Latest vital signs: Vital Signs Temp Pulse Resp BP 12/23/17 08:11 20 12/23/17 00:30 98.0 F 98 H 18 112/68 12/22/17 15:58 98.4 F 102 H 18 111/65 Intake and Output 12/22/17 12/23/17 12/23/17 23:59 07:59 15:59 Intake Total 120 Balance 120 Intake: Oral 120 Other: Total, Intake Amount 120 # Voids Void 1 1 - Exam Breasts: Present: normal Cardiovascular: Present: Regular rate, Normal S1 Lungs: Present: Clear to auscultation, Normal air movement Abdomen: Present: normal appearance, soft, normal bowel sounds. Absent: distention, tenderness, guarding Vulva: both: normal Uterus: Present: normal, firm, fundal height below umbilicus. Absent: tenderness Extremities: Present: normal Deep Tendon Reflex Grade: Normal +2 Incision: Present: normal, dry, intact - Labs Labs: Abnormal lab results 12/22/17 Range/Units 12:56 RBC 3.19 L (3.65-5.03) M/mm3 Hgb 8.5 L (10.1-14.3) gm/dl Hct 26.4 L (30.3-42.9) % MCH 27 L (28-32) pg
[2017-12-23] MEDS: FEOSOL PO SCH (10:29)
--- NOTE | 2017-12-24 08:11 | Progress Note ---
Assessment and Plan - Patient Problems (1) Status post delivery Current Visit: Yes Status: Acute Plan to address problem: Routine postoperative care Discharge home Subjective - Subjective Date of service: 12/24/17 Principal diagnosis: s/p primary Interval history: Patient is tolerating a regular diet and voiding spontaneously. She reports that her pain is well-controlled. Patient reports: appetite normal, voiding normally, pain well controlled : doing well Objective - Vital Signs Latest vital signs: Vital Signs Temp Pulse Resp BP Pulse Ox 12/24/17 00:00 98.7 F 74 16 99/78 12/23/17 18:16 97.4 F L 75 20 114/72 12/23/17 14:12 98.7 F 87 20 103/53 96 12/23/17 08:54 98.4 F 84 20 99/70 97 12/23/17 08:11 20 Intake and Output 12/23/17 12/24/17 12/24/17 22:59 06:59 14:59 Intake Total 300 Balance 300 Intake: Intake, Free Water 300 - Exam Abdomen: Present: normal appearance, soft Incision: Present: normal, dry, intact
--- NOTE | 2017-12-24 08:14 | Discharge Summary ---
Providers - Providers Date of Admission: 12/20/17 12:08 Date of discharge: 12/24/17 Attending physician: JUDIE PALACIOS 12/21/17 14:35 Consult to Le[employer] Worker [CONS] Routine Reason For Exam: Primary care physician: JUDIE PALACIOS Hospitalization Reason for admission: active labor, rupture of membranes Delivery: Procedure: section, bilateral tubal ligation, primary low transverse Incision: normal Discharge diagnosis: IUP at term delivered baby: female Hospital course: The patient was admitted in active labor however her intrapartum course was complicated by nonreassuring heart rate tracing. The patient underwent a primary delivery. Postoperative course was uneventful. Condition at discharge: Good Disposition: DC-01 TO HOME OR SELFCARE - Discharge Diagnoses (1) Status post delivery Status: Acute Plan - Discharge Medications Prescriptions: Ferrous Sulfate [Feosol 325 MG tab] 325 mg PO BID #60 tablet Ibuprofen [Motrin] 800 mg PO Q8HR PRN #30 tablet PRN Reason: Pain, Moderate (4-6) oxyCODONE /ACETAMINOPHEN [Percocet 5/325] 1 tab PO Q6HR PRN #40 tablet PRN Reason: Pain - Provider Discharge Summary Activity: no sex for 6 weeks, no heavy lifting 4 weeks, no strenuous exercise Diet: routine Instructions: routine Additional instructions: [] Smoking cessation referral if applicable(refer to patient education folder for contact #) [] Refer to [facility] Booklet Call your doctor immediately for: * Fever > 100.5 * Heavy vaginal bleeding ( >1 pad per hour) * Severe persistent headache * Shortness of breath * Reddened, hot, painful area to leg or breast * Drainage or odor from incision. * Keep incision clean and dry at all times and follow doctor's instructions regarding bathing/showering Scheduled follow-up on Saturday with Dr. Palacios for removal of cesar - Follow up plan Forms: [facility] Discharge Summary
[2017-12-24] MEDS: FEOSOL PO SCH (11:00)
[2017-12-24 15:45] VITALS: BP 107/60
== END 2017-12-24 15:35 | disposition home or self-care (01) | DRG 765 ==
LOC: TRG 12:07 → LD 12:08 → TRG 12:08 → EEVIPCON 12:08 → TRG 15:59 → OB 12-21 18:20
PROVIDERS: ADMIT Obstetrics & Gynecology; ATTEND Obstetrics & Gynecology
PROC: 10D00Z1 Extraction of Products of Conception, Low, Open Approach (ICD-10-PCS; principal; 2017-12-21)
PROC: 0UL70CZ Occlusion of Bilateral Fallopian Tubes with Extraluminal Device, Open Approach (ICD-10-PCS; 2017-12-21)
PROC: 3E0234Z Introduction of Serum, Toxoid and Vaccine into Muscle, Percutaneous Approach (ICD-10-PCS; 2017-12-22)
DX: O99.824 Streptococcus B carrier state complicating childbirth (principal); O98.32 Other infections with a predominantly sexual mode of transmission complicating childbirth; O75.0 Maternal distress during labor and delivery; Z3A.38 38 weeks gestation of pregnancy; Z37.0 Single live birth; Z23 Encounter for immunization; O76 Abnormality in fetal heart rate and rhythm complicating labor and delivery; O69.81X0 Labor and delivery complicated by cord around neck, without compression, not applicable or unspecified; Z30.2 Encounter for sterilization; O67.8 Other intrapartum hemorrhage; A60.00 Herpesviral infection of urogenital system, unspecified; O99.02 Anemia complicating childbirth; D64.9 Anemia, unspecified
CPT/HCPCS: 36415; 76815; 76819; 85027; 85610; 85730; 86592; 86850; 86900; 86901; 86920; 88307; 99211; C1765; G0463; J0290; J0690; J1200; J1885; J2210; J2250; J2270; J2405; J2590; J2765; J3010; J7120; J7121

== ENCOUNTER 2017-12-29 15:17 | Emergency (ER) | payer MEDICAID ==
[2017-12-29] MEDS ORDERED: NACL 0.9% 500 ML 500 ML IV ONE ×2 (15:47→21:13)
[2017-12-29] MEDS ORDERED: NACL 0.9% 1000 ML 1,000 ML IV ONE (16:03)
[2017-12-29] MEDS ORDERED: TYLENOL PO ONE (16:03)
[2017-12-29] MEDS ORDERED: LEVAQUIN 750MG/150ML 750 MG/150 ML BAG IV ONE (16:04)
[2017-12-29 16:06] LABS: Basophils # (Auto) 0.1 K/mm3 (0.0-0.1); Basophils % (Auto) 0.4 % (0.0-1.8); Hematocrit 33.4 % (30.3-42.9); Hemoglobin 10.7 gm/dl (10.1-14.3); Lymphocytes # (Auto) 1.1 K/mm3 (1.2-5.4); Lymphocytes % (Auto) 6.9 % (13.4-35.0); Mean Corpuscular HGB Conc 32 % (30-34); Mean Corpuscular Hemoglobin 27 pg (28-32); Mean Corpuscular Volume 82 fl (79-97); Monocytes # (Auto) 0.8 K/mm3 (0.0-0.8); Monocytes % (Auto) 5.1 % (0.0-7.3); Platelet Count 417 K/mm3 (140-440); Red Blood Count 4.06 M/mm3 (3.65-5.03); Red Cell Distribution Width 14.2 % (13.2-15.2)
--- NOTE | 2017-12-29 16:07 | Emergency Department Report ---
HPI - General Chief Complaint: Fever Time Seen by Provider: 12/29/17 15:59 - HPI HPI: 22-year-old female presents to the emergency department from home with complaint of increased pain to the lower abdomen/pelvis and the vagina after having a delivery on December 21 here at [facility] by Dr. Palacios of primary [facility]. Over the past 24 hours, the patient has had worsening pain, swelling to both the incisional site and the vagina, a sharp burning sensation in these areas, some purulent drainage from the incision and development of fever. With this and delivery the patient is . She has not taken anything for her symptoms prior to Presentation. No recent travel or sick contacts at home. ED Past Medical Hx - Past Medical History Hx Hypertension: No Hx Congestive Heart Failure: No Hx Diabetes: No Hx Deep Vein Thrombosis: No Hx Renal Disease: No Hx Sickle Cell Disease: No Hx Seizures: No Hx Psychiatric Treatment: (Anxiety) Hx Asthma: No Hx COPD: No Hx Dementia: No Hx HIV: No Additional medical history: vaginal delivery 2013, 2015 - Surgical History Additional Surgical History: unknown, no visible scars C section 12/19/17 - Social History Smoking Status: Never Smoker Substance Use Type: None - Medications Home Medications: Home Medications Medication Instructions Recorded Confirmed Last Taken Type Vit No.129/Iron/Folic 1 each PO QDAY #30 tablet 06/11/17 12/22/1710/28 09:00 Rx [ Tablet] Ferrous Sulfate [Feosol 325 MG tab] 325 mg PO BID #60 tablet 12/22/17 Unknown Rx Ibuprofen [Motrin] 800 mg PO Q8HR PRN #30 tablet 12/22/17 Unknown Rx oxyCODONE /ACETAMINOPHEN [Percocet 1 tab PO Q6HR PRN #40 tablet 12/22/17 Unknown Rx 5/325] Amoxicillin/Potassium Clav 1 each PO BID #14 tablet 12/29/17 Unknown Rx [Augmentin 875-125 Tablet] ED Review of Systems ROS: Stated complaint: INCISION PAIN Other details as noted in HPI Comment: All other systems reviewed and negative Constitutional: fever Eyes: denies: eye pain, eye discharge, vision change ENT: denies: ear pain, throat pain Respiratory: denies: cough, shortness of breath, wheezing Cardiovascular: denies: chest pain, palpitations Gastrointestinal: abdominal pain. denies: vomiting Genitourinary: denies: urgency, dysuria, discharge Musculoskeletal: denies: back pain, joint swelling, arthralgia Skin: change in color. denies: rash Neurological: denies: headache, weakness Physical Exam - Physical Exam Vital Signs: Vital Signs 12/29/17 15:40 Temperature 102.7 F H Pulse Rate 126 H Respiratory 18 Rate Blood Pressure 115/72 Blood Pressure 115/72 [Right] O2 Sat by Pulse 98 Oximetry Physical Exam: GENERAL: The patient is well-developed well-nourished. HENT: Normocephalic. Atraumatic. Patient has moist mucous membranes. EYES: Extraocular motions are intact. Pupils equal reactive to light bilaterally. NECK: Supple. Trachea is midline. CHEST/LUNGS: Clear to auscultation. There is no respiratory distress noted. HEART/CARDIOVASCULAR: Regular. There is mild tachycardia. There is no murmur. ABDOMEN: Abdomen is soft. There is tenderness to palpation to the lower abdomen where the patient has a incision and cesar in place. Patient has normal bowel sounds. SKIN: Skin is warm and dry. There is no surrounding erythema to the incision. No current bleeding or purulent drainage. NEURO: The patient is awake, alert, and oriented. The patient is cooperative. The patient has no focal neurologic deficits. The patient has normal speech and gait. MUSCULOSKELETAL: There is no tenderness or deformity. There is no limitation range of motion. There is no evidence of acute injury. ED Course Vital Signs 12/29/17 15:40 Temperature 102.7 F H Pulse Rate 126 H Respiratory 18 Rate Blood Pressure 115/72 Blood Pressure 115/72 [Right] O2 Sat by Pulse 98 Oximetry - Consultations Consultation #1: I spoke with Dr. Vasquez, sound engineer audio control for the [facility] practice, who listened to the patient's presentation including labs and imaging. She understands that the patient has an appointment with [facility] tomorrow. Dr. Vasquez feels that the patient is safe for discharge home from the emergency department at this time with follow-up tomorrow with her [facility]. 12/30/17 00:48 ED Medical Decision Making - Lab Data Result diagrams: 12/29/17 15:57 12/29/17 15:57 - EKG Data -: EKG Interpreted by Me EKG shows normal: sinus rhythm, axis, intervals (prolonged QTc interval), QRS complexes, ST-T waves Rate: normal - EKG Data When compared to previous EKG there are: previous EKG unavailable Interpretation: other (sinus rhythm, prolonged QTc interval) - Radiology Data Radiology results: report reviewed, image reviewed interpreted by me: Chest x-ray does not show any acute process. There are no pleural effusions, obvious pneumonia and there is no pneumothorax. CT of the abdomen and pelvis with IV contrast was read by radiology as an impression that includes: 1. uterus and postsurgical changes consistent with status post recent section 2. Mild bibasilar atelectasis and small bilateral pleural effusions - Medical Decision Making This patient presents with some pain around her incision and the complaint that there has been some purulent drainage. She also presents with a fever. However the accuracy of the temperature is questionable as she had a fever of 102 and then on recheck 20 minutes later the temperature was 99.8 without any antipyretics given. Patient's labs were mostly unremarkable except for a leukocytosis of 16,000. On examination the area does not have any surrounding erythema or purulent drainage to the incision. She does have some tenderness to palpation in this area. The patient was given IV fluid , Tylenol, Toradol, pain medication. She had a CT scan of the abdomen and pelvis with IV contrast that did not show any focal fluid collection or abscess , cellulitis or any other obvious acute intra-abdominal or intrapelvic pathology other than having an abdomen that is status post . The patient was covered with Levaquin and clindamycin. Patient's differential has included cellulitis, abscess, endometritis versus other. There does not appear to be any surrounding erythema to show a cellulitis. CT scan did not show any fluid collection showing any abscess. The patient was covered with some antibiotics empirically for endometritis. The patient was reevaluated multiple times for multiple hours and is greatly improved. Fever has resolved. Patient' s tachycardia has resolved. The patient says she is feeling better. She has an appointment tomorrow at 3 PM with her [facility]. She will be started on Augmentin and will be discharged home to follow up with her [facility]. However she understands to return to the emergency Department immediately with any worsening of her symptoms, intractable fever, return of purulent drainage or if any acute distress. She understands and agrees to the plan. All questions have been answered. - Differential Diagnosis cellulitis, abscess, postop pain, endometritis, sepsis Critical Care Time: No Critical care attestation.: If time is entered above; I have spent that time in minutes in the direct care of this critically ill patient, excluding procedure time. ED Disposition Clinical Impression: Postoperative abdominal pain, Status post delivery, Pelvic pain Fever Qualifiers: Fever type: unspecified Qualified Code(s): R50.9 - Fever, unspecified Abdominal pain Qualifiers: Abdominal location: unspecified location Qualified Code(s): R10.9 - Unspecified abdominal pain Disposition: TO HOME OR SELFCARE Is pt being admited?: No Condition: Stable Instructions: Fever in Adults (ED), Abdominal Pain (ED) Additional Instructions: Please follow-up with your [facility] tomorrow during your scheduled appointment for reevaluation of your abdominal/pelvic pains and removal of cesar. Take the antibiotics as prescribed. He can use Tylenol every 4 hours and ibuprofen every 6 hours, using weight-based dosing, as needed for fever or discomfort. Please return to the emergency department immediately with any worsening of your symptoms, intractable fever despite treatment, all with any acute distress. Due to receiving pain medication and IV contrast, I recommend that you pump and dump for 24 hours, meaning do not breast-feed. Use formula or previously stored breast milk until that time. Prescriptions: Amoxicillin/Potassium Clav [Augmentin 875-125 Tablet] 1 each PO BID #14 tablet Referrals: [facility] [Provider Group] - 12/30/17 3:00 pm Time of Disposition: 22:22
[2017-12-29 16:20] LABS: INR 1.03 (0.87-1.13)
[2017-12-29] MEDS ORDERED: MORPHINE IV ONE (16:51)
[2017-12-29 16:53] LABS: Alanine Aminotransferase 16 units/L (7-56); Albumin 3.7 g/dL (3.9-5); BUN/Creatinine Ratio 14; Blood Urea Nitrogen 10 mg/dL (7-17); Calcium 9.3 mg/dL (8.4-10.2); Hemolysis Index 0
--- NOTE | 2017-12-29 17:12 | XRay Report ---
FINAL REPORT EXAM: XR CHEST 1V AP HISTORY: possible Sepsis TECHNIQUE: Single, portable chest x-ray. PRIORS: None. FINDINGS: Cardiac and mediastinal silhouette within normal limits. Lungs are normally expanded. No significant vascular congestion. No focal consolidation or apparent pneumothorax. Bony thorax grossly unremarkable. IMPRESSION: 1. No acute findings.
[2017-12-29 17:20] LABS: Bacteria,Urine 1+ /HPF (Negative); Bilirubin,Urine NEG (Negative); Blood,Urine LG (Negative); Color,Urine Straw (Yellow); Mucus,Urine FEW /HPF; Protein,Urine <15 mg/dL mg/dL (Negative); Urobilinogen,Urine < 2.0 mg/dL (<2.0)
[2017-12-29] MEDS ORDERED: NACL 0.9% 500 ML 500 ML ONE (18:33)
--- NOTE | 2017-12-29 18:47 | Cat Scan Report ---
FINAL REPORT EXAM: CT ABDOMEN PELVIS W CON HISTORY: Abd/pelvic pain, fever, s/p TECHNIQUE: Spiral CT scanning of the abdomen and pelvis after the uneventful administration of IV contrast. Multiplanar reformations. 100 mL Omnipaque IV. PRIORS: None. FINDINGS: Abdomen: Visualized lung bases show mild bibasilar atelectasis and very small bilateral pleural effusions. No radiopaque gallstones. Liver without significant abnormality. Spleen without significant abnormality. Pancreas without significant abnormality. Mild dilatation of bilateral renal collecting systems probably physiologic, without apparent renal calcifications. Remainder of kidneys grossly unremarkable. Adrenal glands without significant abnormality. Pelvis: Postsurgical changes in lower abdominopelvic wall, including soft tissue stranding, emphysema and transversely oriented surgical skin cesar. Enlarged, uterus, with some nonspecific fluid in the endometrial cavity. Small, rounded hypodensity or loculation in the right anterior lower uterine segment measuring approximately 1.5 cm in maximal cross-section diameter may represent postsurgical change or residual, but nonspecific. Surgical clips also noted in the bilateral adnexa. Bowel grossly unremarkable. Appendix within normal limits. Trace amount of nonspecific, free fluid in the pelvis. No discrete abscess. Abdominal aorta non-aneurysmal. Axial skeleton grossly unremarkable. IMPRESSION: 1. uterus and postsurgical changes consistent with status post recent section. 2. Mild bibasilar atelectasis and small bilateral pleural effusions.
[2017-12-29] MEDS ORDERED: CLEOCIN 900 MG/50 mL 900 MG/50 ML BAG IV ONE (19:59)
[2017-12-29] MEDS ORDERED: TORADOL IV ONE (20:04)
[2017-12-29 21:35] VITALS: BP 119/76
== END 2017-12-29 23:14 | disposition home or self-care (01) ==
LOC: ED 15:17
DX: O86.4 Pyrexia of unknown origin following delivery (principal); O90.89 Other complications of the puerperium, not elsewhere classified; R10.2 Pelvic and perineal pain; R10.9 Unspecified abdominal pain
CPT/HCPCS: 36415; 71045; 74177; 80053; 81001; 82140; 82805; 85025; 85610; 86850; 86900; 86901; 87040; 87086; 93005; 93010; 96365; 96367; 96375; 99285; J1885; J1956; J7030; J7040; Q9967

== ENCOUNTER 2017-12-30 12:18 | Inpatient (IN) | payer MEDICAID ==
[2017-12-30] MEDS ORDERED: NACL 0.9% 1000 ML IV ONE (13:10)
--- NOTE | 2017-12-30 13:14 | Emergency Department Report ---
Chief Complaint: Wound/Laceration Stated Complaint: BLEEDING FROM CEASAREAN SECTION Time Seen by Provider: 12/30/17 13:02 - HPI History of Present Illness: HERE LAST PM CO ABD PAIN DRESSING REMOVED COPIOUS PURULENT DRAINAGE NOTED TACHYCARDIA CONCERNED FOR SEPSIS TO MAIN ED - Exam Vital Signs: Vital Signs 12/30/17 12:30 Temperature 98.2 F Pulse Rate 110 H Respiratory 16 Rate Blood Pressure 110/65 O2 Sat by Pulse 98 Oximetry MSE screening note: Focused history and physical exam performed. Due to findings the following was ordered: ED Disposition for MSE Condition: Stable Referrals: PRIMARY CARE, [Primary Care Provider] - 3-5 Days
[2017-12-30 13:35] LABS: Basophils # (Auto) 0.1 K/mm3 (0.0-0.1); Basophils % (Auto) 0.5 % (0.0-1.8); Eosinophils % (Auto) 0.4 % (0.0-4.3); Hematocrit 30.3 % (30.3-42.9); Hemoglobin 9.6 gm/dl (10.1-14.3); Lymphocytes # (Auto) 1.3 K/mm3 (1.2-5.4); Lymphocytes % (Auto) 10.2 % (13.4-35.0); Mean Corpuscular HGB Conc 32 % (30-34); Mean Corpuscular Hemoglobin 26 pg (28-32); Mean Corpuscular Volume 83 fl (79-97); Monocytes # (Auto) 1.2 K/mm3 (0.0-0.8); Monocytes % (Auto) 8.8 % (0.0-7.3); Platelet Count 363 K/mm3 (140-440); Red Blood Count 3.65 M/mm3 (3.65-5.03); Red Cell Distribution Width 14.6 % (13.2-15.2)
[2017-12-30] MEDS ORDERED: PERCOCET 5/325 PO PRN (13:53)
[2017-12-30] MEDS ORDERED: TUCKS PAD TP PRN (13:53)
[2017-12-30] MEDS ORDERED: MOTRIN PO PRN (13:53)
[2017-12-30] MEDS ORDERED: LANSINOH TP PRN (13:53)
[2017-12-30] MEDS ORDERED: NARCAN 0.4 MG/1 ML IV PRN (13:53)
[2017-12-30 13:54] LABS: Alanine Aminotransferase 10 units/L (7-56); Albumin 2.9 g/dL (3.9-5); BUN/Creatinine Ratio 13; Blood Urea Nitrogen 8 mg/dL (7-17); Calcium 8.8 mg/dL (8.4-10.2); Hemolysis Index 1
[2017-12-30] MEDS ORDERED: VANCOMYCIN PHARMACY TO DOSE IV SCH (14:00)
[2017-12-30] MEDS ORDERED: SODIUM CHLORIDE FLUSH SYRINGE 10 ML IV NR (14:00)
[2017-12-30] MEDS ORDERED: VANCOMYCIN 1,500 MG in NACL 0.9% 500 ML 500 ML IV ONE (14:30)
--- NOTE | 2017-12-30 16:17 | Emergency Department Report ---
ED Abdominal Pain HPI - General Chief Complaint: Wound/Laceration Stated Complaint: BLEEDING FROM CEASAREAN SECTION Time Seen by Provider: 12/30/17 13:02 Source: patient Mode of arrival: Wheelchair Limitations: No Limitations - History of Present Illness Initial Comments: 42-year-old female presented to the emergency room yesterday. She had a CT of her abdomen which is nondiagnostic. She had a fever and elevated white blood cell count. I believe she is eventually discharged. She returned to the emergency department today stating that her wound has started to drain pus after her discharge. She complains of localized pain to the area. She is not found to be febrile on her return. She did not complain of chills. She did not complain of dysuria or any shaking. She denied nausea or vomiting. The patient is status post on 12/19/2017 at this facility. Complaint: abdominal pain, other (drainage of pus from ) -: days(s) Associated Symptoms: denies other symptoms, fever. denies: nausea, vomiting, diarrhea - Related Data Previous Rx's Medication Instructions Recorded Last Taken Type Ferrous Sulfate [Feosol 325 MG tab] 325 mg PO BID #60 tablet 12/22/17 2 Days Ago Rx ~12/28/17 Ibuprofen [Motrin] 800 mg PO Q8HR PRN #30 tablet 12/22/17 2 Days Ago Rx ~12/28/17 oxyCODONE /ACETAMINOPHEN [Percocet 1 tab PO Q6HR PRN #40 tablet 12/22/17 2 Days Ago Rx 5/325] ~12/28/17 Amoxicillin/Potassium Clav 1 each PO BID #14 tablet 12/29/17 Unknown Rx [Augmentin 875-125 Tablet] Allergies Allergy/AdvReac Type Severity Reaction Status Date / Time No Known Allergies Allergy Verified 12/30/17 14:02 ED Review of Systems ROS: Stated complaint: BLEEDING FROM CEASAREAN SECTION Other details as noted in HPI Constitutional: chills, fever Eyes: denies: eye pain, eye discharge, vision change ENT: denies: ear pain, throat pain Respiratory: denies: cough, shortness of breath, wheezing Cardiovascular: denies: chest pain, palpitations Endocrine: no symptoms reported Gastrointestinal: abdominal pain. denies: nausea, diarrhea Genitourinary: denies: urgency, dysuria, discharge Musculoskeletal: denies: back pain, joint swelling, arthralgia Skin: denies: rash, lesions Neurological: denies: headache, weakness, paresthesias Psychiatric: denies: anxiety, depression Hematological/Lymphatic: denies: easy bleeding, easy bruising ED Past Medical Hx - Past Medical History Previous Medical History?: No Hx Hypertension: No Hx Congestive Heart Failure: No Hx Diabetes: No Hx Deep Vein Thrombosis: No Hx Renal Disease: No Hx Sickle Cell Disease: No Hx Seizures: No Hx Psychiatric Treatment: Yes (Anxiety) Hx Asthma: No Hx COPD: No Hx Dementia: No Hx HIV: No Additional medical history: vaginal delivery 2013, 2015 - Surgical History Additional Surgical History: C/S - Social History Smoking Status: Never Smoker Substance Use Type: None - Medications Home Medications: Home Medications Medication Instructions Recorded Confirmed Last Taken Type Ferrous Sulfate [Feosol 325 MG tab] 325 mg PO BID #60 tablet 12/22/17 12/30/17 2 Days Ago Rx ~12/28/17 Ibuprofen [Motrin] 800 mg PO Q8HR PRN #30 tablet 12/22/17 12/30/17 2 Days Ago Rx ~12/28/17 oxyCODONE /ACETAMINOPHEN [Percocet 1 tab PO Q6HR PRN #40 tablet 12/22/17 2 Days Ago Rx 5/325] ~12/28/17 Amoxicillin/Potassium Clav 1 each PO BID #14 tablet 12/29/17 12/30/17 Unknown Rx [Augmentin 875-125 Tablet] ED Physical Exam - General Limitations: No Limitations General appearance: alert, in no apparent distress - Head Head exam: Present: atraumatic, normocephalic - Eye Eye exam: Present: normal appearance. Absent: scleral icterus - ENT ENT exam: Present: mucous membranes moist - Neck Neck exam: Present: normal inspection - Respiratory Respiratory exam: Present: normal lung sounds bilaterally. Absent: respiratory distress - Cardiovascular Cardiovascular Exam: Present: regular rate, normal rhythm. Absent: systolic murmur, diastolic murmur, rubs, gallop - GI/Abdominal GI/Abdominal exam: Present: soft, tenderness (localized to the area), normal bowel sounds, mass (is probably some subcutaneous collection of pus), other (the wound is not dehisced however it is weeping purulent material). Absent: distended, guarding, rebound, rigid, organomegaly, bruit, pulsatile mass , hernia - Extremities Exam Extremities exam: Present: normal inspection - Back Exam Back exam: Present: normal inspection - Neurological Exam Neurological exam: Present: alert, oriented X3 - Psychiatric Psychiatric exam: Present: normal affect, normal mood - Skin Skin exam: Present: warm, dry, intact, normal color. Absent: rash ED Course Vital Signs 12/30/17 12:30 Temperature 98.2 F Pulse Rate 110 H Respiratory 16 Rate Blood Pressure 110/65 O2 Sat by Pulse 98 Oximetry - Reevaluation(s) Reevaluation #1: The patient had a sepsis protocol initiated. She was given vancomycin. I spoke to the [employer] group, Dr. Renetta Palacios. She admitted the patient to the hospital. She will address the patient's infection. The patient was admitted in stable condition. 12/30/17 16:20 ED Medical Decision Making - Lab Data Result diagrams: 12/30/17 13:10 12/30/17 13:10 Laboratory Results - last 24 hr 12/30/17 12/30/17 12/30/17 13:10 13:10 13:18 WBC 13.2 H RBC 3.65 Hgb 9.6 L Hct 30.3 MCV 83 MCH 26 L MCHC 32 RDW 14.6 Plt Count 363 Lymph % (Auto) 10.2 L [place] % (Auto) 8.8 H Eos % (Auto) 0.4 Baso % (Auto) 0.5 Lymph # 1.3 [place] # 1.2 H Eos # 0.0 Baso # 0.1 Seg Neutrophils % 80.1 H Seg Neutrophils # 10.6 H PT INR APTT Sodium 139 Potassium 3.8 Chloride 104.8 Carbon Dioxide 21 L Anion Gap 17 BUN 8 Creatinine 0.6 L Estimated GFR > 60 BUN/Creatinine Ratio 13 Glucose 82 Lactic Acid 0.90 Calcium 8.8 Total Bilirubin 0.50 AST 8 ALT 10 Alkaline Phosphatase 66 Total Protein 6.2 L Albumin 2.9 L Albumin/Globulin Ratio 0.9 12/30/17 13:18 WBC RBC Hgb Hct MCV MCH MCHC RDW Plt Count Lymph % (Auto) [place] % (Auto) Eos % (Auto) Baso % (Auto) Lymph # [place] # Eos # Baso # Seg Neutrophils % Seg Neutrophils # PT 14.7 INR 1.10 APTT Not Reportable Sodium Potassium Chloride Carbon Dioxide Anion Gap BUN Creatinine Estimated GFR BUN/Creatinine Ratio Glucose Lactic Acid Calcium Total Bilirubin AST ALT Alkaline Phosphatase Total Protein Albumin Albumin/Globulin Ratio Critical care attestation.: If time is entered above; I have spent that time in minutes in the direct care of this critically ill patient, excluding procedure time. ED Disposition Clinical Impression: Abdominal wall abscess, Status post Disposition: OP ADMIT IP TO THIS HOSP Is pt being admited?: Yes Does the pt Need Aspirin: No Condition: Stable Referrals: PRIMARY CARE, [Primary Care Provider] - 3-5 Days Time of Disposition: 16:22
--- NOTE | 2017-12-30 16:42 | Consultation ---
History of Present Illness - Reason for Consult Consult date: 12/30/17 wound infection Requesting physician: JUDIE SALAS - History of Present Illness The patient is a 22-year-old female with no significant past medical history. On 12/19/2017, the patient underwent a . She initially did well, however yesterday she presented to the emergency room due to fever, bloody drainage from her incision site. She was seen in the emergency room, a CT scan of the abdomen was unrevealing and she was discharged home. This morning when she woke up, she noted significant recurrent and bloody drainage and hence returned to the emergency room and was admitted. Here, she didn't have any fever. She denies any nausea, vomiting or diarrhea. Denies any shaking chills. Had a culture collected and was started on IV vancomycin. Denies any vaginal discharge or bleeding. Otherwise denies any smoking, alcohol or recreational drug use. Denies any significant infections in the past. Review of Systems: General: fevers +, no chills or rigors HEENT: no new visual disturbance Respiratory: No cough, sputum, hemoptysis or shortness of breath Cardiovascular: No chest pain, syncope Gastrointestinal: No nausea, vomiting or diarrhea Genitourinary: No dysuria or hematuria Musculoskeletal: No new or worsening neck pain or back pain Neurologic: No headaches, seizures Hematologic: No easy bruising or bleeding Endocrine: No night sweats or acute weight loss Skin: negative for rash, jaundice Psychiatric: No suicidal or homicidal ideation Medications and Allergies Allergies Allergy/AdvReac Type Severity Reaction Status Date / Time No Known Allergies Allergy Verified 12/30/17 14:02 Home Medications Medication Instructions Recorded Confirmed Last Taken Type Ferrous Sulfate [Feosol 325 MG tab] 325 mg PO BID #60 tablet 12/22/17 12/30/17 2 Days Ago Rx ~12/28/17 Ibuprofen [Motrin] 800 mg PO Q8HR PRN #30 tablet 12/22/17 12/30/17 2 Days Ago Rx ~12/28/17 oxyCODONE /ACETAMINOPHEN [Percocet 1 tab PO Q6HR PRN #40 tablet 12/22/17 2 Days Ago Rx 5/325] ~12/28/17 Amoxicillin/Potassium Clav 1 each PO BID #14 tablet 12/29/17 12/30/17 Unknown Rx [Augmentin 875-125 Tablet] Active Meds: Active Medications Dextrose/Lactated Ringer's (D5lr) 1,000 mls @ 125 mls/hr IV DIRECT FLACO Vancomycin HCl 1,250 mg/ (Sodium Chloride) 275 mls @ 166.667 mls/hr IV Q12H FLACO Ibuprofen (Motrin) 800 mg PO Q6H PRN PRN Reason: Pain, Mild (1-3) Multi-Ingredient Ointment (Lansinoh) 1 applic TP PRN PRN PRN Reason: dryness/cracking Naloxone HCl (Narcan 0.4 Mg/1 Ml) 0.1 mg IV Q2MIN PRN PRN Reason: Res Rate </= 8 or 02 SAT < 92% Oxycodone/Acetaminophen (Percocet 5/325) 2 tab PO Q4H PRN PRN Reason: Pain, Moderate (4-6) Sodium Chloride (Sodium Chloride Flush Syringe 10 Ml) 10 ml IV PRN NR Stop: 12/30/17 23:00 Witch Kathie/Glycerin (Tucks Pad) 1 each TP PRN PRN PRN Reason: Hemorrhoids/cleansing/soothing Physical Examination - Physical Exam Narrative exam: Physical Exam: Constitutional: Alert, cooperative. No acute distress Head, Ears, Nose: Normocephalic, atraumatic. External ears, nose normal Eyes: Conjunctivae/corneas clear. No icterus. No ptosis. Neck: Supple, no meningeal signs Oral: dentition fair, no thrush Cardiovascular: S1, S2 normal. Respiratory: Good air entry, clear to auscultation bilaterally GI: Soft, non-tender; bowel sounds normal. No peritoneal signs Musculoskeletal: No pedal edema, no cyanosis. Lower abdominal surgical incision with cesar, induration and moderately severe tenderness + with mild purulence. Skin: No rash or abscess. Tattoos + Hem/Lymphatic: No palpable cervical or supraclavicular nodes. No lymphangitis Psych: Mood ok. Affect normal Neurological: Awake, alert, oriented. No gross abnormality - Constitutional Vitals: Vital Signs Temp Pulse Resp BP Pulse Ox 98.2 F 110 H 16 110/65 98 12/30/17 12:30 12/30/17 12:30 12/30/17 12:30 12/30/17 12:30 12/30/17 12:30 Temperature -Last 24 Hours Temperature 98.2 F Results - Labs CBC & Chem 7: 12/30/17 13:10 12/30/17 13:10 Labs: Abnormal lab results 12/30/17 12/30/17 Range/Units 13:10 13:10 WBC 13.2 H (4.5-11.0) K/mm3 Hgb 9.6 L (10.1-14.3) gm/dl MCH 26 L (28-32) pg Lymph % (Auto) 10.2 L (13.4-35.0) % [place] % (Auto) 8.8 H (0.0-7.3) % [place] # 1.2 H (0.0-0.8) K/mm3 Seg Neutrophils % 80.1 H (40.0-70.0) % Seg Neutrophils # 10.6 H (1.8-7.7) K/mm3 Carbon Dioxide 21 L (22-30) mmol/L Creatinine 0.6 L (0.7-1.2) mg/dL Total Protein 6.2 L (6.3-8.2) g/dL Albumin 2.9 L (3.9-5) g/dL - Imaging and Cardiology Chest x-ray: report reviewed (Chest x-ray shows no evidence of pneumonia.), image reviewed CT scan - abdomen: report reviewed, image reviewed (CT abdomen and pelvis with IV contrast showed a 1.5 cm loculation in the right anterior lower uterine segment presumed to represent postsurgical change. No obvious abscess was noted.) Assessment and Plan Cultures: 12/29/2017 urine culture: No growth 12/29/2017 blood culture: No growth thus far 12/30/2017 wound culture: Gram stain reveals few PMNs, rare gram-positive cocci. A/P: 22-year-old female with no significant past medical history, recent on 12/19/2017 admitted with: #1 Surgical site infection: Patient with fever, significant pain, induration and drainage from the surgical site. Initial Gram stain showing gram-positive cocci, hence continue with empiric IV vancomycin. We will follow-up on plans for any debridement plan / staple removal by the surgical team. #2 Recent and breast feeding status: Continue Vancomycin, low risk. Recs: - Continue IV vancomycin, target trough between 10-20 g per mL - Follow-up final wound cultures - will follow-up on plans for any debridement plan / staple removal by the surgical team Thank you for the consult. We will follow along. Please call with questions. MD Jessica [facility] C: [phone] O: [phone] F: [phone]
[2017-12-30] MEDS: D5LR 1,000 ML IV SCH (17:38)
--- NOTE | 2017-12-30 17:40 | History and Physical Report ---
History of Present Illness Date of examination: 12/30/17 Date of admission: 12/30/17 13:51 Chief complaint: Incisional pain, fever History of present illness: The patient is a 22-year-old -Iranian female 3 para 210 status post primary low transverse section on 12/20/2017 who presents with a 2 day history of fever and increasing incisional pain. Yesterday, the patient presented to the emergency department and was found to have a fever. Blood cultures were collected. A CT scan of the abdomen and pelvis showed postsurgical changes, as well as bilateral atelectasis and small pleural effusions. There is no evidence of pneumonia. She was discharged home with instructions for follow-up. She presented the emergency room today complaining of blood and pus draining from her incision. 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 Family/Genetic History: none Social history: no significant social history - Obstetrical History : 3 Para: 3 Medications and Allergies Allergies Allergy/AdvReac Type Severity Reaction Status Date / Time No Known Allergies Allergy Verified 12/30/17 14:02 Home Medications Medication Instructions Recorded Confirmed Last Taken Type Ferrous Sulfate [Feosol 325 MG tab] 325 mg PO BID #60 tablet 12/22/17 12/30/17 2 Days Ago Rx ~12/28/17 Ibuprofen [Motrin] 800 mg PO Q8HR PRN #30 tablet 12/22/17 12/30/17 2 Days Ago Rx ~12/28/17 oxyCODONE /ACETAMINOPHEN [Percocet 1 tab PO Q6HR PRN #40 tablet 12/22/17 2 Days Ago Rx 5/325] ~12/28/17 Amoxicillin/Potassium Clav 1 each PO BID #14 tablet 12/29/17 12/30/17 Unknown Rx [Augmentin 875-125 Tablet] Active Meds: Active Medications Dextrose/Lactated Ringer's (D5lr) 1,000 mls @ 125 mls/hr IV DIRECT FLACO Last Admin: 12/30/17 17:38 Dose: 125 mls/hr Vancomycin HCl 1,250 mg/ (Sodium Chloride) 275 mls @ 166.667 mls/hr IV Q12H FLACO Ibuprofen (Motrin) 800 mg PO Q6H PRN PRN Reason: Pain, Mild (1-3) Multi-Ingredient Ointment (Lansinoh) 1 applic TP PRN PRN PRN Reason: dryness/cracking Naloxone HCl (Narcan 0.4 Mg/1 Ml) 0.1 mg IV Q2MIN PRN PRN Reason: Res Rate </= 8 or 02 SAT < 92% Oxycodone/Acetaminophen (Percocet 5/325) 2 tab PO Q4H PRN PRN Reason: Pain, Moderate (4-6) Sodium Chloride (Sodium Chloride Flush Syringe 10 Ml) 10 ml IV PRN NR Stop: 12/30/17 23:00 Witch Kathie/Glycerin (Tucks Pad) 1 each TP PRN PRN PRN Reason: Hemorrhoids/cleansing/soothing Review of Systems All systems: negative Constitutional: fever - Vital Signs Vital signs: Vital Signs Temp Pulse Resp BP Pulse Ox 98.2 F 110 H 16 110/65 98 12/30/17 12:30 12/30/17 12:30 12/30/17 12:30 12/30/17 12:30 12/30/17 12:30 Temp Pulse Resp BP Pulse Ox 98.9 F 76 20 113/75 98 12/30/17 15:00 12/30/17 15:00 12/30/17 15:00 12/30/17 15:00 12/30/17 15:00 - Physical Exam Breasts: Positive: deferred Cardiovascular: Regular rate Lungs: Positive: Clear to auscultation Abdomen: Positive: soft, tenderness (around incision), other (erythema surrounds incision. The material noted to be draining from the center of the incision.) Uterus: Positive: enlarged () Extremities: Positive: normal Results Result Diagrams: 12/30/17 13:10 12/30/17 13:10 Abnormal lab results 12/30/17 12/30/17 Range/Units 13:10 13:10 WBC 13.2 H (4.5-11.0) K/mm3 Hgb 9.6 L (10.1-14.3) gm/dl MCH 26 L (28-32) pg Lymph % (Auto) 10.2 L (13.4-35.0) % [place] % (Auto) 8.8 H (0.0-7.3) % [place] # 1.2 H (0.0-0.8) K/mm3 Seg Neutrophils % 80.1 H (40.0-70.0) % Seg Neutrophils # 10.6 H (1.8-7.7) K/mm3 Carbon Dioxide 21 L (22-30) mmol/L Creatinine 0.6 L (0.7-1.2) mg/dL Total Protein 6.2 L (6.3-8.2) g/dL Albumin 2.9 L (3.9-5) g/dL All other labs normal. Assessment and Plan Assessment: Status post primary section on 12/21/17 with fever and purulent incisional drainage consistent with a postoperative wound infection Plan: Admit for observation Edinson removed Wound cultures Initiate IV antibiotics Wound care consult ID consult Continue to monitor clinically
[2017-12-30 22:21] LABS: Bilirubin,Urine NEG (Negative); Blood,Urine SM (Negative); Color,Urine Yellow (Yellow); Mucus,Urine FEW /HPF; Protein,Urine <15 mg/dL mg/dL (Negative)
[2017-12-31] MEDS: D5LR 1,000 ML IV SCH (02:19)
[2017-12-31] MEDS: VANCOMYCIN 1,250 MG in NACL 0.9% 250ML 250 ML IV SCH ×2 (02:20→14:26)
--- NOTE | 2017-12-31 08:12 | Progress Note ---
Assessment and Plan Assessment: Status post primary section on 12/21/17 with fever and purulent incisional drainage consistent with a postoperative wound infection Plan: Continue current management Follow up wound care recommendations Await wound cultures to guide antibiotic therapy Subjective - Subjective Date of service: 12/31/17 Principal diagnosis: Postoperative wound infection Interval history: No overnight events. Pt reports that her incisional pain is much improved after staple removal. No fever overnight. Patient reports: appetite normal, voiding normally, pain well controlled, flatus , ambulating normally, no bowel movement Objective - Vital Signs Latest vital signs: Vital Signs Temp Pulse Resp BP BP Pulse Ox 12/31/17 04:25 98.2 F 69 18 122/78 12/31/17 00:00 99.1 F 84 20 108/61 99 12/30/17 20:10 98.0 F 83 20 123/72 96 12/30/17 15:00 98.9 F 76 20 113/75 98 12/30/17 12:30 98.2 F 110 H 16 110/65 98 Intake and Output 12/30/17 12/31/17 12/31/17 22:59 06:59 14:59 Intake Total 1000 Output Total 600 1200 Balance -600 -200 Intake: IV 1000 D5lr 1,000 ml @ 125 mls/ 1000 hr IV DIRECT FLACO Rx#: [id number] Output: Urine 600 1200 Void 600 1200 Other: Total, Output Amount 600 600 # Voids Void 1 1 Weight 77.564 kg - Exam Breasts: Present: deferred Cardiovascular: Present: Regular rate Lungs: Present: Clear to auscultation Abdomen: Present: soft Uterus: Present: fundal height below umbilicus Extremities: Present: normal Incision: Present: dressed - Labs Labs: Abnormal lab results 12/30/17 12/30/17 Range/Units 13:10 13:10 WBC 13.2 H (4.5-11.0) K/mm3 Hgb 9.6 L (10.1-14.3) gm/dl MCH 26 L (28-32) pg Lymph % (Auto) 10.2 L (13.4-35.0) % [place] % (Auto) 8.8 H (0.0-7.3) % [place] # 1.2 H (0.0-0.8) K/mm3 Seg Neutrophils % 80.1 H (40.0-70.0) % Seg Neutrophils # 10.6 H (1.8-7.7) K/mm3 Carbon Dioxide 21 L (22-30) mmol/L Creatinine 0.6 L (0.7-1.2) mg/dL Total Protein 6.2 L (6.3-8.2) g/dL Albumin 2.9 L (3.9-5) g/dL
--- NOTE | 2017-12-31 10:11 | Progress Note ---
Assessment and Plan Cultures: 12/29/2017 urine culture: No growth 12/29/2017 blood culture: No growth thus far 12/30/2017 wound culture: Staph aureus A/P: 22-year-old female with no significant past medical history, recent on 12/19/2017 admitted with: #1 Surgical site infection: Patient with fever, significant pain, induration and drainage from the surgical site. Initial Gram stain showing gram-positive cocci, hence continue with empiric IV vancomycin. #2 Recent and breast feeding status: Continue Vancomycin, low risk. Recs: - Continue IV vancomycin, target trough between 10-20 g per mL - Follow-up final wound cultures - anticipate discharging on oral antibiotics, depending on final cultures and treatment response. [facility] M: [phone] O:[phone] Subjective Date of service: 12/31/17 Principal diagnosis: Postoperative wound infection Interval history: Patient was seen today, sitting up in the bed, holding her baby. Her brother was at the bedside. Patient stated that she was feeling much better today, since the cesar were removed from her incision. Patient denies fever, pain or rashes. Current Antimicroabials Vancomycin Previous Antimicrobials Objective - Exam Narrative Exam: Constitutional: Alert, cooperative. No acute distress Head, Ears, Nose: Normocephalic, atraumatic. External ears, nose normal Eyes: Conjunctivae/corneas clear. No icterus. No ptosis. Neck: Supple, no meningeal signs Oral: dentition fair, no thrush Cardiovascular: S1, S2 normal. Respiratory: Good air entry, clear to auscultation bilaterally GI: Soft, non-tender; bowel sounds normal. No peritoneal signs Musculoskeletal: No pedal edema, no cyanosis. Lower abdominal surgical incision with cesar, induration, very mild tenderness, no purulence observed. Skin: No rash or abscess. Tattoos + Hem/Lymphatic: No palpable cervical or supraclavicular nodes. No lymphangitis Psych: Mood ok. Affect normal Neurological: Awake, alert, oriented. No gross abnormality - Constitutional Vitals: Vital Signs Temp Pulse Resp BP Pulse Ox 98.5 F 66 18 107/69 97 12/31/17 08:41 12/31/17 08:41 12/31/17 08:41 12/31/17 08:41 12/31/17 08:41 Temperature -Last 24 Hours Temperature 98.5 F Temperature 98.2 F Temperature 99.1 F Temperature 98.0 F Temperature 98.9 F Temperature 98.2 F - Labs CBC & Chem 7: 12/30/17 13:10 12/30/17 13:10 Labs: Abnormal lab results 12/30/17 12/30/17 Range/Units 13:10 13:10 WBC 13.2 H (4.5-11.0) K/mm3 Hgb 9.6 L (10.1-14.3) gm/dl MCH 26 L (28-32) pg Lymph % (Auto) 10.2 L (13.4-35.0) % [place] % (Auto) 8.8 H (0.0-7.3) % [place] # 1.2 H (0.0-0.8) K/mm3 Seg Neutrophils % 80.1 H (40.0-70.0) % Seg Neutrophils # 10.6 H (1.8-7.7) K/mm3 Carbon Dioxide 21 L (22-30) mmol/L Creatinine 0.6 L (0.7-1.2) mg/dL Total Protein 6.2 L (6.3-8.2) g/dL Albumin 2.9 L (3.9-5) g/dL
[2017-12-31] MEDS ORDERED: BENADRYL IV ONE (20:39)
--- NOTE | 2017-12-31 20:57 | Event Note ---
Date: 12/31/17 On-call MD contacted by RN secondary to pt c/o pruritic rash on her arms which she attributes to the Vancomycin she is receiving. Plan to hold 2 am dose and give Benadryl 25 mg IV now. Continue to monitor clinically.
[2017-12-31 22:21] VITALS: BP 120/71
--- NOTE | 2018-01-01 16:18 | Event Note ---
Date: 01/01/18 Notified by RN that pt is in her room with her child without another adult present after being informed of the unit policy that prohibits the patient to be the only adult caring for a child. When notified that if the child remained, [facility] would have to be contacted, she left the facility without medical advice.
--- NOTE | 2018-01-01 16:22 | Discharge Summary ---
Providers - Providers Date of Admission: 12/30/17 13:51 Date of discharge: 12/31/17 Attending physician: JUDIE SALAS 12/30/17 13:50 Consult to Wound/ET Nurse [CONS] Urgent Reason For Exam: wound eval, on 12/20/17 12/30/17 13:53 Consult to Physician [CONS] Routine Comment: Consulting Provider: JIM BAKER Physician Instructions: Reason For Exam: post wound infection Primary care physician: STAFFING ASSISTANT Hospitalization Reason for admission: other (Postoperative wound infection ) Procedure details: Infectious Disease Consult, Wound Care Consult, IV antibiotics Hospital course: Pt was admitted for postoperative wound infection. She was started on IV antibiotics and was evaluated by Wound Care Service and Infectious Disease Service. Prior to receiving the sensitivities on her wound cultures to guide her therapy, the patient left against medical advice because she had to take care of her children. Condition at discharge: Stable Disposition: -07 LEFT AGAINST MED ADVICE - Discharge Diagnoses (1) Postoperative wound infection Status: Acute Qualifiers: Encounter type: initial encounter Qualified Code(s): T81.4XXA - Infection following a procedure, initial encounter (2) Abdominal wall abscess Status: Acute Plan - Provider Discharge Summary Additional instructions: [] Smoking cessation referral if applicable(refer to patient education folder for contact #) [] Refer to [facility]'s [facility] Booklet Call your doctor immediately for: * Fever > 100.5 * Heavy vaginal bleeding ( >1 pad per hour) * Severe persistent headache * Shortness of breath * Reddened, hot, painful area to leg or breast * Drainage or odor from incision. * Keep incision clean and dry at all times and follow doctor's instructions regarding bathing/showering - Follow up plan Follow up: PRIMARY CAREMD [Primary Care Provider] - 3-5 Days
== END 2017-12-31 22:33 | disposition left against medical advice (07) | DRG 776 ==
LOC: ED 12:18 → OB 13:51
PROVIDERS: ADMIT Obstetrics & Gynecology; ATTEND Obstetrics & Gynecology
DX: O86.01 Infection of obstetric surgical wound, superficial incisional site (principal); Z53.21 Procedure and treatment not carried out due to patient leaving prior to being seen by health care provider; Z79.2 Long term (current) use of antibiotics; Z79.899 Other long term (current) drug therapy; O99.345 Other mental disorders complicating the puerperium; F41.9 Anxiety disorder, unspecified; B95.61 Methicillin susceptible Staphylococcus aureus infection as the cause of diseases classified elsewhere; L27.0 Generalized skin eruption due to drugs and medicaments taken internally; T36.8X5A Adverse effect of other systemic antibiotics, initial encounter
CPT/HCPCS: 36415; 80053; 81001; 82140; 85025; 85610; 85730; 87075; 87076; 87116; 87186; 99285; A6250; J1200; J3370; J7030; J7040; J7050; J7121

== ENCOUNTER 2018-08-21 18:16 | Emergency (ER) | payer MEDICAID ==
[2018-08-21 18:25] VITALS: BP 119/61
--- NOTE | 2018-08-21 18:25 | Emergency Department Report ---
Blank Doc - Documentation Documentation: This is a 23-year-old female that presents with vaginal discharge. This initial assessment/diagnostic orders/clinical plan/treatment(s) is/are subject to change based on patient's health status, clinical progression and re- assessment by fellow clinical providers in the ED. Further treatment and workup at subsequent clinical providers discretion. Patient/guardians urged not to elope from the ED as their condition may be serious if not clinically assessed and managed. Initial orders include: 1- Patient sent to [facility] for further evaluation and treatment 2- wet prep/GC swabs 3- UA
--- NOTE | 2018-08-21 20:34 | Emergency Department Report ---
ED Female HPI - General Chief complaint: Urogenital-Female Stated complaint: VAGINAL PAIN Time Seen by Provider: 08/21/18 18:24 Source: patient Mode of arrival: Ambulatory Limitations: No Limitations - History of Present Illness Initial comments: This is a 22-year-old female presents with a vaginal discharge 3 days patient states that vaginal discharge is light yellow with mild odor. She denies dysuria, hematuria, vaginal bleed. Patient does state that she has been sexually active with the partner. She denies fevers/chills/nausea vomiting/abd ominal pain. MD Complaint: vaginal discharge -: days(s) (3) - Related Data Previous Rx's Medication Instructions Recorded Last Taken Type Ferrous Sulfate [Feosol 325 MG tab] 325 mg PO BID #60 tablet 12/22/17 2 Days Ago Rx ~12/28/17 Ibuprofen [Motrin] 800 mg PO Q8HR PRN #30 tablet 12/22/17 2 Days Ago Rx ~12/28/17 oxyCODONE /ACETAMINOPHEN [Percocet 1 tab PO Q6HR PRN #40 tablet 12/22/17 2 Days Ago Rx 5/325] ~12/28/17 Amoxicillin/Potassium Clav 1 each PO BID #14 tablet 12/29/17 Unknown Rx [Augmentin 875-125 Tablet] metroNIDAZOLE [Flagyl TAB] 500 mg PO Q12HR #14 tab 08/21/18 Unknown Rx Allergies Allergy/AdvReac Type Severity Reaction Status Date / Time No Known Allergies Allergy Verified 08/21/18 18:17 ED Review of Systems ROS: Stated complaint: VAGINAL PAIN Other details as noted in HPI Comment: All other systems reviewed and negative ED Past Medical Hx - Past Medical History Hx Hypertension: No Hx Congestive Heart Failure: No Hx Diabetes: No Hx Deep Vein Thrombosis: No Hx Renal Disease: No Hx Sickle Cell Disease: No Hx Seizures: No Hx Psychiatric Treatment: Yes (Anxiety) Hx Asthma: No Hx COPD: No Hx Dementia: No Hx HIV: No Additional medical history: vaginal delivery 2013, 2015 - Surgical History Additional Surgical History: C/S - Social History Smoking Status: Current Every Day Smoker Substance Use Type: Alcohol - Medications Home Medications: Home Medications Medication Instructions Recorded Confirmed Last Taken Type Ferrous Sulfate [Feosol 325 MG tab] 325 mg PO BID #60 tablet 12/22/17 12/30/17 2 Days Ago Rx ~12/28/17 Ibuprofen [Motrin] 800 mg PO Q8HR PRN #30 tablet 12/22/17 12/30/17 2 Days Ago Rx ~12/28/17 oxyCODONE /ACETAMINOPHEN [Percocet 1 tab PO Q6HR PRN #40 tablet 12/22/17 12/30/17 2 Days Ago Rx 5/325] ~12/28/17 Amoxicillin/Potassium Clav 1 each PO BID #14 tablet 12/29/17 12/30/17 Unknown Rx [Augmentin 875-125 Tablet] metroNIDAZOLE [Flagyl TAB] 500 mg PO Q12HR #14 tab 08/21/18 Unknown Rx ED Physical Exam - General Limitations: No Limitations General appearance: alert, in no apparent distress - Head Head exam: Present: atraumatic, normocephalic - Eye Eye exam: Present: normal appearance - ENT ENT exam: Present: mucous membranes moist - Neck Neck exam: Present: normal inspection - Respiratory Respiratory exam: Present: normal lung sounds bilaterally. Absent: respiratory distress - Cardiovascular Cardiovascular Exam: Present: regular rate, normal rhythm. Absent: systolic murmur, diastolic murmur, rubs, gallop - GI/Abdominal GI/Abdominal exam: Present: soft, normal bowel sounds. Absent: distended, tenderness, guarding, rebound - External exam: Present: normal external exam Speculum exam: Present: vaginal discharge, cervical discharge, other (model orders) Bi-manual exam: Present: normal bi-manual exam. Absent: cervical motion tendernes, adnexal tenderness - Extremities Exam Extremities exam: Present: normal inspection - Back Exam Back exam: Present: normal inspection - Neurological Exam Neurological exam: Present: alert, oriented X3 - Psychiatric Psychiatric exam: Present: normal affect, normal mood - Skin Skin exam: Present: warm, dry, intact, normal color. Absent: rash ED Course Vital Signs 08/21/18 18:23 Temperature 98.3 F Pulse Rate 75 Respiratory 20 Rate Blood Pressure 119/61 [Right] O2 Sat by Pulse 98 Oximetry ED Medical Decision Making - Lab Data Laboratory Last Values Yellow (Yellow) 08/21/18 Unknown Slightly-cloudy (Clear) 08/21/18 Unknown 5.0 (5.0-7.0) 08/21/18 Unknown Ur Specific [place] 1.033 (1.003-1.030) H 08/21/18 Unknown <15 mg/dl mg/dL (Negative) 08/21/18 Unknown Neg mg/dL (Negative) 08/21/18 Unknown Tr mg/dL (Negative) 08/21/18 Unknown Neg (Negative) 08/21/18 Unknown Neg (Negative) 08/21/18 Unknown Neg (Negative) 08/21/18 Unknown < 2.0 mg/dL (<2.0) 08/21/18 Unknown Ur Leukocyte Esterase Neg (Negative) 08/21/18 Unknown 2.0 /HPF (0.0-6.0) 08/21/18 Unknown 1.0 /HPF (0.0-6.0) 08/21/18 Unknown U Epithel Cells (Auto) 1.0 /HPF (0-13.0) 08/21/18 Unknown Calcium Oxalate Crystal 2+ 08/21/18 Unknown 3+ /HPF 08/21/18 Unknown Urine HCG, Qual Negative (Negative) 08/21/18 Unknown - Medical Decision Making 23-year-old female presents with bacterial vaginosis. Urinalysis negative, U test negative Wet prep indicated above by Jesus ferris, Discussed findings with patient. Discussed the patient gonorrhea and Chlamydia cultures were sent and will be back first 2-3 days. Discussed the patient to follow up with primary care physician. Patient understands that she may get a call back if any of her STD testing is positive or she is to call back in 3-4 days for results. Vital signs are normal. Patient is in no acute distress Critical care attestation.: If time is entered above; I have spent that time in minutes in the direct care of this critically ill patient, excluding procedure time. ED Disposition Clinical Impression: Bacterial vaginosis Disposition: -01 TO HOME OR SELFCARE Is pt being admited?: No Does the pt Need Aspirin: No Condition: Stable Instructions: Bacterial Vaginosis (ED) Additional Instructions: Make sure to follow up with the primary care physician as discussed. Take all your medications as you've been prescribed. If you have any worsening symptoms or develop new symptoms please return to ED immediately. Prescriptions: metroNIDAZOLE [Flagyl TAB] 500 mg PO Q12HR #14 tab Referrals: JOSE HUGHES MD [Primary Care Provider] - 3-5 Days Forms: STI Treatment and Prevention Time of Disposition: 21:18
[2018-08-21 20:55] LABS: Bilirubin,Urine NEG (Negative); Blood,Urine NEG (Negative); Calcium Oxalate Crystals,Urine 2+; Color,Urine Yellow (Yellow); HCG Qualitative,Urine Negative (Negative); Mucus,Urine 3+ /HPF; Protein,Urine <15 mg/dL mg/dL (Negative); Urobilinogen,Urine < 2.0 mg/dL (<2.0)
== END 2018-08-21 21:30 | disposition home or self-care (01) ==
LOC: ED 18:16
DX: N76.0 Acute vaginitis (principal); B96.89 Other specified bacterial agents as the cause of diseases classified elsewhere; F17.200 Nicotine dependence, unspecified, uncomplicated
CPT/HCPCS: 81001; 81025; 87210; 87591; 99283

== ENCOUNTER 2018-10-04 01:14 | Emergency (ER) | payer MEDICAID ==
[2018-10-04] MEDS ORDERED: ZOFRAN ODT PO ONE (01:25)
[2018-10-04] MEDS ORDERED: ZOFRAN ODT ONE (01:28)
[2018-10-04 05:04] VITALS: BP 107/69
[2018-10-04] MEDS ORDERED: FIORICET PO ONE (05:14)
[2018-10-04] MEDS ORDERED: TORADOL IM ONE (05:14)
--- NOTE | 2018-10-04 06:07 | Emergency Department Report ---
ED General Adult HPI - General Chief complaint: Headache Stated complaint: MIGRAINES Time Seen by Provider: 10/04/18 05:20 Source: patient Mode of arrival: Ambulatory Limitations: No Limitations - History of Present Illness Initial comments: Patient is a 23-year-old -[place] female with a history of chronic migraine headaches presents to the ED with complaint of acute exacerbation of her chronic headaches with nausea and vomiting for the last 2 days. Patient denies dizziness, change in vision, sore throat, nasal and sinus congestion, chest pain, shortness of breath, fever, chills, abdominal pain, diarrhea, dysuria, neck pain, or change in urination. MD Complaint: migrainea headache, nausea, vomiting -: Sudden, days(s) (2) Location: head Radiation: non-radiation Severity scale (0 -10): 8 Quality: aching, sharp Consistency: constant Improves with: none Worsens with: none Associated Symptoms: denies other symptoms, headaches, loss of appetite, nausea/vomiting. denies: confusion, chest pain, cough, diaphoresis, fever/chills, malaise, rash, seizure, shortness of breath, syncope, weakness Treatments Prior to Arrival: none - Related Data Previous Rx's Medication Instructions Recorded Last Taken Type Ferrous Sulfate [Feosol 325 MG tab] 325 mg PO BID #60 tablet 12/22/17 2 Days Ago Rx ~12/28/17 Ibuprofen [Motrin] 800 mg PO Q8HR PRN #30 tablet 12/22/17 2 Days Ago Rx ~12/28/17 oxyCODONE /ACETAMINOPHEN [Percocet 1 tab PO Q6HR PRN #40 tablet 12/22/17 2 Days Ago Rx 5/325] ~12/28/17 Amoxicillin/Potassium Clav 1 each PO BID #14 tablet 12/29/17 Unknown Rx [Augmentin 875-125 Tablet] metroNIDAZOLE [Flagyl TAB] 500 mg PO Q12HR #14 tab 08/21/18 Unknown Rx Amoxicillin [Trimox CAP] 500 mg PO Q8H #30 capsule 10/04/18 Unknown Rx Butalb/Acetamin/Caff 50-325-40 1 each PO Q4H PRN #12 tablet 10/04/18 Unknown Rx [Fioricet 50-325-40] Ketorolac [Toradol] 10 mg PO Q8H PRN #20 tablet 10/04/18 Unknown Rx Promethazine [Phenergan] 25 mg PO Q6HR PRN #20 tab 10/04/18 Unknown Rx Allergies Allergy/AdvReac Type Severity Reaction Status Date / Time No Known Allergies Allergy Verified 08/21/18 18:17 ED Review of Systems ROS: Stated complaint: MIGRAINES Other details as noted in HPI Constitutional: denies: chills, fever Eyes: denies: eye pain, eye discharge, vision change ENT: denies: ear pain, throat pain Respiratory: denies: cough, shortness of breath, wheezing Cardiovascular: denies: chest pain, palpitations Endocrine: no symptoms reported Gastrointestinal: nausea, vomiting. denies: abdominal pain, diarrhea Genitourinary: denies: urgency, dysuria, discharge Musculoskeletal: denies: back pain, joint swelling, arthralgia Skin: denies: rash, lesions Neurological: headache. denies: weakness, paresthesias Psychiatric: denies: anxiety, depression Hematological/Lymphatic: denies: easy bleeding, easy bruising ED Past Medical Hx - Past Medical History Hx Hypertension: No Hx Congestive Heart Failure: No Hx Diabetes: No Hx Deep Vein Thrombosis: No Hx Renal Disease: No Hx Sickle Cell Disease: No Hx Seizures: No Hx Psychiatric Treatment: Yes (Anxiety) Hx Asthma: No Hx COPD: No Hx Dementia: No Hx HIV: No Additional medical history: vaginal delivery 2013, 2015 - Surgical History Past Surgical History?: Yes Additional Surgical History: C/S - Social History Smoking Status: Current Every Day Smoker Substance Use Type: None - Medications Home Medications: Home Medications Medication Instructions Recorded Confirmed Last Taken Type Ferrous Sulfate [Feosol 325 MG tab] 325 mg PO BID #60 tablet 12/22/17 12/30/17 2 Days Ago Rx ~12/28/17 Ibuprofen [Motrin] 800 mg PO Q8HR PRN #30 tablet 12/22/17 12/30/17 2 Days Ago Rx ~12/28/17 oxyCODONE /ACETAMINOPHEN [Percocet 1 tab PO Q6HR PRN #40 tablet 12/22/17 12/30/17 2 Days Ago Rx 5/325] ~12/28/17 Amoxicillin/Potassium Clav 1 each PO BID #14 tablet 12/29/17 12/30/17 Unknown Rx [Augmentin 875-125 Tablet] metroNIDAZOLE [Flagyl TAB] 500 mg PO Q12HR #14 tab 08/21/18 Unknown Rx Amoxicillin [Trimox CAP] 500 mg PO Q8H #30 capsule 10/04/18 Unknown Rx Butalb/Acetamin/Caff 50-325-40 1 each PO Q4H PRN #12 tablet 10/04/18 Unknown Rx [Fioricet 50-325-40] Ketorolac [Toradol] 10 mg PO Q8H PRN #20 tablet 10/04/18 Unknown Rx Promethazine [Phenergan] 25 mg PO Q6HR PRN #20 tab 10/04/18 Unknown Rx ED Physical Exam - General Limitations: No Limitations General appearance: alert, in no apparent distress - Head Head exam: Present: atraumatic, normocephalic, normal inspection - Eye Eye exam: Present: normal appearance, PERRL, EOMI. Absent: scleral icterus, conjunctival injection, nystagmus Pupils: Present: normal accommodation - ENT ENT exam: Present: normal exam, normal orophraynx, mucous membranes moist, TM's normal bilaterally, normal external ear exam - Neck Neck exam: Present: normal inspection, full ROM - Respiratory Respiratory exam: Present: normal lung sounds bilaterally. Absent: respiratory distress, wheezes, chest wall tenderness, accessory muscle use - Cardiovascular Cardiovascular Exam: Present: regular rate, normal rhythm, normal heart sounds. Absent: systolic murmur, diastolic murmur, rubs, gallop - GI/Abdominal GI/Abdominal exam: Present: soft, normal bowel sounds. Absent: hyperactive bowel sounds, hypoactive bowel sounds, mass, bruit - Rectal Rectal exam: Present: deferred - Extremities Exam Extremities exam: Present: normal inspection, full ROM, normal capillary refill. Absent: pedal edema - Back Exam Back exam: Present: normal inspection, full ROM. Absent: CVA tenderness (L), muscle spasm, paraspinal tenderness - Neurological Exam Neurological exam: Present: alert, oriented X3, CN II-XII intact, normal gait, reflexes normal - Psychiatric Psychiatric exam: Present: normal affect, normal mood - Skin Skin exam: Present: warm, dry, intact, normal color. Absent: rash ED Course Vital Signs 10/04/18 10/04/18 10/04/18 01:21 05:03 05:44 Temperature 98.8 F 98.1 F Pulse Rate 73 65 Respiratory 14 18 18 Rate Blood Pressure 131/79 Blood Pressure 107/69 [Left] O2 Sat by Pulse 99 97 Oximetry - Reevaluation(s) Reevaluation #1: 10/04/18 06:05 Patient is alert and oriented 3 and is not in distress with normal vital signs. Patient was treated for pain in the ED and discharged home on medications for headache. Patient is empirically treated for acute sinusitis. Patient advised to follow-up with her primary care physician in 7-10 days for reevaluation or return to the ED immediately if symptoms get worse. ED Medical Decision Making - Medical Decision Making Patient is alert and oriented 3 and is not in distress with normal vital signs. Patient was treated for pain in the ED and discharged home on medications for headache. Patient is empirically treated for acute sinusitis. Patient advised to follow-up with her primary care physician in 7-10 days for reevaluation or return to the ED immediately if symptoms get worse. - Differential Diagnosis sinus headache, migraine headache, nausea, vomiting Critical care attestation.: If time is entered above; I have spent that time in minutes in the direct care of this critically ill patient, excluding procedure time. ED Disposition Clinical Impression: Chronic migraine, Nausea and vomiting in adult Acute frontal sinusitis Qualifiers: Recurrence: recurrent Qualified Code(s): J01.11 - Acute recurrent frontal sinusitis Disposition: - TO HOME OR SELFCARE Is pt being admited?: No Does the pt Need Aspirin: No Condition: Stable Instructions: Migraine Headache (ED), Sinusitis (ED), Acute Nausea and Vomiting (ED) Additional Instructions: Take medications with food, drink plenty of fluids and follow-up with her primary care physician in 7-10 days for reevaluation. Return to the ED immediately if symptoms get worse. Prescriptions: Butalb/Acetamin/Caff 50-325-40 [Fioricet 50-325-40] 1 each PO Q4H PRN #12 tablet PRN Reason: Headache Promethazine [Phenergan] 25 mg PO Q6HR PRN #20 tab PRN Reason: Nausea Ketorolac [Toradol] 10 mg PO Q8H PRN #20 tablet PRN Reason: Pain Amoxicillin [Trimox CAP] 500 mg PO Q8H #30 capsule Referrals: JOSE HUGHES MD [Primary Care Provider] - 3-5 Days Time of Disposition: 06:09 Print Language: DANISH
== END 2018-10-04 06:31 | disposition home or self-care (01) ==
LOC: ED 01:14
DX: G43.909 Migraine, unspecified, not intractable, without status migrainosus (principal); R11.2 Nausea with vomiting, unspecified; F41.9 Anxiety disorder, unspecified; F17.200 Nicotine dependence, unspecified, uncomplicated
CPT/HCPCS: 99282; J1885; Q0162

== ENCOUNTER 2018-11-06 08:10 | Emergency (ER) | payer MEDICAID ==
[2018-11-06 08:28] VITALS: BP 118/70
--- NOTE | 2018-11-06 09:59 | Emergency Department Report ---
ED Female HPI - General Chief complaint: Urogenital-Female Stated complaint: LOWER ABD/VAGINAL/BACK PAIN Time Seen by Provider: 11/06/18 09:28 Source: patient Mode of arrival: Ambulatory Limitations: No Limitations - History of Present Illness Initial comments: 23 yo F presents to ED with vaginal discharge x 2 weeks. Reports vaginal irritation and lower back pain x 3 months.. Denies vaginal bleeding, dysuria, frequency. MD Complaint: vaginal discharge -: week(s) (2) Radiation: other (back) Severity: mild Quality: other ("irritation") Consistency: intermittent Improves with: none Worsens with: none Associated Symptoms: vaginal discharge. denies: vaginal bleeding, abdominal pain, nausea/vomiting, fever/chills, dysuria - Related Data Previous Rx's Medication Instructions Recorded Last Taken Type Ferrous Sulfate [Feosol 325 MG tab] 325 mg PO BID #60 tablet 12/22/17 2 Days Ago Rx ~12/28/17 Ibuprofen [Motrin] 800 mg PO Q8HR PRN #30 tablet 12/22/17 2 Days Ago Rx ~12/28/17 oxyCODONE /ACETAMINOPHEN [Percocet 1 tab PO Q6HR PRN #40 tablet 12/22/17 2 Days Ago Rx 5/325] ~12/28/17 Amoxicillin/Potassium Clav 1 each PO BID #14 tablet 12/29/17 Unknown Rx [Augmentin 875-125 Tablet] Amoxicillin [Trimox CAP] 500 mg PO Q8H #30 capsule 10/04/18 Unknown Rx Butalb/Acetamin/Caff 50-325-40 1 each PO Q4H PRN #12 tablet 10/04/18 Unknown Rx [Fioricet 50-325-40] Ketorolac [Toradol] 10 mg PO Q8H PRN #20 tablet 10/04/18 Unknown Rx Promethazine [Phenergan] 25 mg PO Q6HR PRN #20 tab 10/04/18 Unknown Rx Fluconazole [Diflucan TAB] 150 mg PO ONCE #1 tablet 11/06/18 Unknown Rx metroNIDAZOLE [Flagyl TAB] 500 mg PO Q12HR #14 tab 11/06/18 Unknown Rx Allergies Allergy/AdvReac Type Severity Reaction Status Date / Time No Known Allergies Allergy Verified 11/06/18 08:15 ED Review of Systems ROS: Stated complaint: LOWER ABD/VAGINAL/BACK PAIN Other details as noted in HPI Comment: All other systems reviewed and negative Constitutional: denies: chills, fever Gastrointestinal: denies: abdominal pain, nausea, vomiting Genitourinary: discharge. denies: dysuria, frequency Musculoskeletal: back pain ED Past Medical Hx - Past Medical History Previous Medical History?: Yes Hx Hypertension: No Hx Congestive Heart Failure: No Hx Diabetes: No Hx Deep Vein Thrombosis: No Hx Renal Disease: No Hx Sickle Cell Disease: No Hx Seizures: No Hx Psychiatric Treatment: Yes (Anxiety) Hx Asthma: No Hx COPD: No Hx Dementia: No Hx HIV: No Additional medical history: vaginal delivery 2013, 2015 - Surgical History Past Surgical History?: Yes Additional Surgical History: C/S - Social History Smoking Status: Current Every Day Smoker Substance Use Type: Alcohol - Medications Home Medications: Home Medications Medication Instructions Recorded Confirmed Last Taken Type Ferrous Sulfate [Feosol 325 MG tab] 325 mg PO BID #60 tablet 12/22/17 12/30/17 2 Days Ago Rx ~12/28/17 Ibuprofen [Motrin] 800 mg PO Q8HR PRN #30 tablet 12/22/17 12/30/17 2 Days Ago Rx ~12/28/17 oxyCODONE /ACETAMINOPHEN [Percocet 1 tab PO Q6HR PRN #40 tablet 12/22/17 12/30/17 2 Days Ago Rx 5/325] ~12/28/17 Amoxicillin/Potassium Clav 1 each PO BID #14 tablet 12/29/17 12/30/17 Unknown Rx [Augmentin 875-125 Tablet] Amoxicillin [Trimox CAP] 500 mg PO Q8H #30 capsule 10/04/18 Unknown Rx Butalb/Acetamin/Caff 50-325-40 1 each PO Q4H PRN #12 tablet 10/04/18 Unknown Rx [Fioricet 50-325-40] Ketorolac [Toradol] 10 mg PO Q8H PRN #20 tablet 10/04/18 Unknown Rx Promethazine [Phenergan] 25 mg PO Q6HR PRN #20 tab 10/04/18 Unknown Rx Fluconazole [Diflucan TAB] 150 mg PO ONCE #1 tablet 11/06/18 Unknown Rx metroNIDAZOLE [Flagyl TAB] 500 mg PO Q12HR #14 tab 11/06/18 Unknown Rx ED Physical Exam - General Limitations: No Limitations General appearance: alert, in no apparent distress - Head Head exam: Present: atraumatic, normocephalic - Eye Eye exam: Present: normal appearance, PERRL, EOMI - ENT ENT exam: Present: mucous membranes moist - Neck Neck exam: Present: normal inspection - Respiratory Respiratory exam: Present: normal lung sounds bilaterally. Absent: respiratory distress - Cardiovascular Cardiovascular Exam: Present: regular rate, normal rhythm - GI/Abdominal GI/Abdominal exam: Present: soft. Absent: distended, tenderness - External exam: Present: normal external exam Speculum exam: Present: cervical discharge Bi-manual exam: Present: normal bi-manual exam. Absent: cervical motion tender haroldo - Extremities Exam Extremities exam: Present: normal inspection - Back Exam Back exam: Absent: CVA tenderness (R), CVA tenderness (L) - Neurological Exam Neurological exam: Present: alert, oriented X3 - Psychiatric Psychiatric exam: Present: normal affect, normal mood - Skin Skin exam: Present: warm, dry, intact, normal color ED Course Vital Signs 11/06/18 11/06/18 08:24 08:44 Temperature 98.9 F Pulse Rate 84 Respiratory 18 18 Rate Blood Pressure 118/70 O2 Sat by Pulse 100 98 Oximetry ED Medical Decision Making - Differential Diagnosis uti, pid, Critical care attestation.: If time is entered above; I have spent that time in minutes in the direct care of this critically ill patient, excluding procedure time. ED Disposition Clinical Impression: Bacterial vaginosis Disposition: DC-01 TO HOME OR SELFCARE Is pt being admited?: No Condition: Stable Instructions: Bacterial Vaginosis (ED) Prescriptions: Fluconazole [Diflucan TAB] 150 mg PO ONCE #1 tablet metroNIDAZOLE [Flagyl TAB] 500 mg PO Q12HR #14 tab Referrals: PUNEET GUY MD [Primary Care Provider] - 3-5 Days Forms: STI Treatment and Prevention Time of Disposition: 12:03
[2018-11-06 10:38] LABS: Bacteria,Urine 1+ /HPF (Negative); Bilirubin,Urine NEG (Negative); Blood,Urine NEG (Negative); Color,Urine Yellow (Yellow); Mucus,Urine 2+ /HPF; Protein,Urine <15 mg/dL mg/dL (Negative)
[2018-11-06 10:42] LABS: HCG Qualitative,Urine Negative (Negative)
[2018-11-06] MEDS ORDERED: ZITHROMAX PO ONE (11:45)
[2018-11-06] MEDS ORDERED: XYLOCAINE 1% MPF 5 mL INFILTRATI ONE (11:45)
[2018-11-06] MEDS ORDERED: ROCEPHIN IM ONE (11:45)
== END 2018-11-06 12:07 | disposition home or self-care (01) ==
LOC: ED 08:10
DX: N76.0 Acute vaginitis (principal); F41.9 Anxiety disorder, unspecified; F17.200 Nicotine dependence, unspecified, uncomplicated; Z79.899 Other long term (current) drug therapy
CPT/HCPCS: 81001; 81025; 87210; 87591; 96372; 99284; J0696

== ENCOUNTER 2019-01-01 13:24 | Emergency (ER) | payer MEDICAID ==
[2019-01-01] MEDS ORDERED: IBUPROFEN 600 MG TAB PO ONE (13:36)
--- NOTE | 2019-01-01 13:37 | Event Note ---
ED Screening Note Date of service: 01/01/19 Time: 13:35 ED Screening Note: 23 y/o female comes in for sore throat, low grade fever,bodyaches and pain at her . times 1 day. This initial assessment/diagnostic orders/clinical plan/treatment(s) is/are subject to change based on patients health status, clinical progression and re- assessment by fellow clinical providers in the ED. Further treatment and workup at subsequent clinical providers discretion. Patient/guardian urged not to elope from the ED as their condition may be serious if not clinically assessed and managed. Initial orders include:
[2019-01-01] MEDS ORDERED: ONDANSETRON 4 MG ODT TAB PO ONE (13:38)
[2019-01-01] MEDS ORDERED: ONDANSETRON 4 MG ODT TAB ONE (13:41)
[2019-01-01] MEDS ORDERED: SODIUM CHLORIDE 0.9% 1000 ML 1,000 ML IV ONE (14:13)
[2019-01-01] MEDS ORDERED: HYDROcodone/ACETAMINOPHEN 5-325 MG TAB PO ONE (14:14)
--- NOTE | 2019-01-01 14:14 | Emergency Department Report ---
ED Female HPI - General Chief complaint: Sore Throat Stated complaint: BODY PAIN (C SECTION)DISCHARGE Time Seen by Provider: 01/01/19 13:34 Source: patient Mode of arrival: Ambulatory Limitations: No Limitations - History of Present Illness Initial comments: Luis Fernando is a 23 yo female who presents with back pain vaginal discharge severe body aches for several days. Pain with movement. She also has sore throat. Severe diffuse body pain. She had a last year. She has pelvic pain at the patient of the location of the incision also has severe right flank pain. Flank pain without radiation. Past medical history includes Chlamydia infection and genital herpes MD Complaint: vaginal discharge, pelvic pain, other (right flank pain ) -: Gradual, days(s) (2) Severity: severe Severity scale (0 -10): 8 Quality: sharp Consistency: constant Worsens with: movement, other (ambulation) Are you Now?: No Associated Symptoms: vaginal discharge, other (general malaise flank pain and pelvic pain) - Related Data Previous Rx's Medication Instructions Recorded Last Taken Type Ferrous Sulfate [Feosol 325 MG tab] 325 mg PO BID #60 tablet 12/22/17 2 Days Ago Rx ~12/28/17 Ibuprofen [Motrin] 800 mg PO Q8HR PRN #30 tablet 12/22/17 2 Days Ago Rx ~12/28/17 oxyCODONE /ACETAMINOPHEN [Percocet 1 tab PO Q6HR PRN #40 tablet 12/22/17 2 Days Ago Rx 5/325] ~12/28/17 Amoxicillin/Potassium Clav 1 each PO BID #14 tablet 12/29/17 Unknown Rx [Augmentin 875-125 Tablet] Amoxicillin [Trimox CAP] 500 mg PO Q8H #30 capsule 10/04/18 Unknown Rx Butalb/Acetamin/Caff 50-325-40 1 each PO Q4H PRN #12 tablet 10/04/18 Unknown Rx [Fioricet 50-325-40] Ketorolac [Toradol] 10 mg PO Q8H PRN #20 tablet 10/04/18 Unknown Rx Promethazine [Phenergan] 25 mg PO Q6HR PRN #20 tab 10/04/18 Unknown Rx Fluconazole [Diflucan TAB] 150 mg PO ONCE #1 tablet 11/06/18 Unknown Rx metroNIDAZOLE [Flagyl TAB] 500 mg PO Q12HR #14 tab 11/06/18 Unknown Rx DOXYCYCLINE Hyclate [Vibramycin 100 mg PO Q12HR 28 Days #14 capsule 01/01/19 Unknown Rx CAP] HYDROcodone/APAP 5-325 [[place] 1 each PO Q6HR PRN #15 tablet 01/01/19 Unknown Rx 5/325] Allergies Allergy/AdvReac Type Severity Reaction Status Date / Time No Known Allergies Allergy Verified 11/06/18 08:15 ED Review of Systems ROS: Stated complaint: BODY PAIN (C SECTION)DISCHARGE Other details as noted in HPI Comment: All other systems reviewed and negative Constitutional: malaise ENT: throat pain Gastrointestinal: abdominal pain, nausea, vomiting Genitourinary: discharge. denies: urgency, dysuria, frequency Musculoskeletal: back pain ED Past Medical Hx - Past Medical History Previous Medical History?: Yes Hx Hypertension: No Hx Congestive Heart Failure: No Hx Diabetes: No Hx Deep Vein Thrombosis: No Hx Renal Disease: No Hx Sickle Cell Disease: No Hx Seizures: No Hx Psychiatric Treatment: Yes (Anxiety) Hx Asthma: No Hx COPD: No Hx Dementia: No Hx HIV: No Additional medical history: vaginal delivery 2013, 2015 - Surgical History Past Surgical History?: Yes Additional Surgical History: C section - Social History Smoking Status: Never Smoker Substance Use Type: None - Medications Home Medications: Home Medications Medication Instructions Recorded Confirmed Last Taken Type Ferrous Sulfate [Feosol 325 MG tab] 325 mg PO BID #60 tablet 12/22/17 12/30/17 2 Days Ago Rx ~12/28/17 Ibuprofen [Motrin] 800 mg PO Q8HR PRN #30 tablet 12/22/17 12/30/17 2 Days Ago Rx ~12/28/17 oxyCODONE /ACETAMINOPHEN [Percocet 1 tab PO Q6HR PRN #40 tablet 12/22/17 12/30/17 2 Days Ago Rx 5/325] ~12/28/17 Amoxicillin/Potassium Clav 1 each PO BID #14 tablet 12/29/17 12/30/17 Unknown Rx [Augmentin 875-125 Tablet] Amoxicillin [Trimox CAP] 500 mg PO Q8H #30 capsule 10/04/18 Unknown Rx Butalb/Acetamin/Caff 50-325-40 1 each PO Q4H PRN #12 tablet 07/13/19 Unknown Rx [Fioricet 50-325-40] Ketorolac [Toradol] 10 mg PO Q8H PRN #20 tablet 10/04/18 Unknown Rx Promethazine [Phenergan] 25 mg PO Q6HR PRN #20 tab 10/04/18 Unknown Rx Fluconazole [Diflucan TAB] 150 mg PO ONCE #1 tablet 11/06/18 Unknown Rx metroNIDAZOLE [Flagyl TAB] 500 mg PO Q12HR #14 tab 11/06/18 Unknown Rx DOXYCYCLINE Hyclate [Vibramycin 100 mg PO Q12HR 28 Days #14 capsule 01/01/19 Unknown Rx CAP] HYDROcodone/APAP 5-325 [[place] 1 each PO Q6HR PRN #15 tablet 01/01/19 Unknown Rx 5/325] ED Physical Exam - General Limitations: No Limitations General appearance: alert, in no apparent distress, other (appears ill appears uncomfortable clammy) - Head Head exam: Present: atraumatic, normocephalic - Eye Eye exam: Present: normal appearance - ENT ENT exam: Present: mucous membranes moist - Neck Neck exam: Present: normal inspection, full ROM - Respiratory Respiratory exam: Present: normal lung sounds bilaterally. Absent: respiratory distress, wheezes, rales, rhonchi - Cardiovascular Cardiovascular Exam: Present: regular rate, tachycardia, normal heart sounds. Absent: systolic murmur, diastolic murmur, rubs, gallop - GI/Abdominal GI/Abdominal exam: Present: soft, normal bowel sounds. Absent: distended, tenderness, guarding, rebound - External exam: Present: normal external exam Speculum exam: Present: vaginal discharge, cervical discharge Bi-manual exam: Present: cervical motion tendernes, adnexal tenderness - Extremities Exam Extremities exam: Present: normal inspection - Back Exam Back exam: Present: CVA tenderness (R) - Neurological Exam Neurological exam: Present: alert, oriented X3 - Psychiatric Psychiatric exam: Present: normal affect, normal mood - Skin Skin exam: Present: warm, dry, intact, normal color. Absent: rash ED Course Vital Signs 01/01/19 01/01/19 13:32 14:30 Temperature 99.9 F H 101.1 F H Pulse Rate 114 H 110 H Respiratory 18 20 Rate Blood Pressure 100/58 Blood Pressure 110/62 [Right] O2 Sat by Pulse 97 99 Oximetry ED Medical Decision Making - Radiology Data Radiology results: report reviewed CT abdomen and pelvis: Normal appendix and no acute process - Medical Decision Making Ms. Solo presents with fever bodyaches headache pelvic pain vaginal discharge sore throat no evidence of pharyngitis on physical exam. Diagnosis PID given ceftriaxone and doxycycline in the emergency department. Prescribed doxycycline and pain medication. Urinalysis negative for infection is contaminated. UPT negative Differential diagnosis includes influenza Critical care attestation.: If time is entered above; I have spent that time in minutes in the direct care of this critically ill patient, excluding procedure time. ED Disposition Clinical Impression: Pelvic inflammatory disease Disposition: DC- TO HOME OR SELFCARE Is pt being admited?: No Does the pt Need Aspirin: No Condition: Stable Instructions: Pelvic Inflammatory Disease (ED) Prescriptions: HYDROcodone/APAP 5-325 [[place] 5/325] 1 each PO Q6HR PRN #15 tablet PRN Reason: Pain DOXYCYCLINE Hyclate [Vibramycin CAP] 100 mg PO Q12HR 28 Days #14 capsule Referrals: PRIMARY CARE, [Primary Care Provider] - 3-[address] [facility] [Outside] - 3-5 Days
[2019-01-01 14:41] VITALS: BP 110/62
[2019-01-01 14:53] LABS: Bilirubin,Urine NEG (Negative); Blood,Urine SM (Negative); Color,Urine Yellow (Yellow); Mucus,Urine 3+ /HPF; Urobilinogen,Urine < 2.0 mg/dL (<2.0)
[2019-01-01 15:30] LABS: HCG Qualitative,Urine Negative (Negative)
--- NOTE | 2019-01-01 16:14 | Cat Scan Report ---
CT ABDOMEN AND PELVIS WITHOUT CONTRAST INDICATION / CLINICAL INFORMATION: Right flank pain and fever for 3 days. TECHNIQUE: Axial CT images were obtained through the abdomen and pelvis without IV contrast. All CT scans at [facility] location are performed using CT dose reduction for ALARA by means of automated exposure control. COMPARISON: CT scan dated 12/29/2017 FINDINGS: LOWER CHEST: No significant abnormality. LIVER: No significant abnormality. GALLBLADDER: No significant abnormality. BILE DUCTS: No significant abnormality. PANCREAS: No significant abnormality. SPLEEN: No significant abnormality. ADRENALS: No significant abnormality. RIGHT KIDNEY and URETER: No significant abnormality. LEFT KIDNEY and URETER: No significant abnormality. STOMACH and SMALL BOWEL: No significant abnormality. COLON: No significant abnormality. APPENDIX: No significant abnormality. PERITONEUM: No free fluid. No free air. No fluid collection. LYMPH NODES: No significant adenopathy. AORTA and ARTERIES: No significant abnormality. IVC and VEINS: No significant abnormality. URINARY BLADDER: No significant abnormality. REPRODUCTIVE ORGANS: Changes of prior tubal ligation are noted. ADDITIONAL FINDINGS: None. SKELETAL SYSTEM: No significant abnormality. IMPRESSION: 1. No acute abnormality. The appendix is unremarkable. There are no renal or ureteral calculi. There is no hydronephrosis. Signer Name: Blu Leiva MD Signed: 01/01/2019 4:10 PM Workstation Name: [id number]
[2019-01-01] MEDS ORDERED: DOXYCYCLINE 100 MG CAPSULE PO ONE (16:36)
[2019-01-01] MEDS ORDERED: LIDOCAINE-MPF (1%) 10 MG/1 ML VIAL 5 ML INFILTRATI ONE (16:36)
== END 2019-01-01 17:38 | disposition home or self-care (01) ==
LOC: ED 13:24
DX: N73.9 Female pelvic inflammatory disease, unspecified (principal); F41.9 Anxiety disorder, unspecified; Z79.899 Other long term (current) drug therapy
CPT/HCPCS: 74176; 81001; 81025; 87116; 87430; 96372; 99284; J0696; Q0162

== ENCOUNTER 2019-01-02 16:54 | Emergency (ER) | payer MEDICAID ==
[2019-01-02 17:22] VITALS: BP 115/65
--- NOTE | 2019-01-02 17:23 | Event Note ---
ED Screening Note Date of service: 01/02/19 Time: 17:20 ED Screening Note: 23 y/o female comes in for sorethroat, back pain, vomiting and pelvic pain. Having Vaginal . LMP 12/14/18. No n/v/just chills. This initial assessment/diagnostic orders/clinical plan/treatment(s) is/are subject to change based on patients health status, clinical progression and re- assessment by fellow clinical providers in the ED. Further treatment and workup at subsequent clinical providers discretion. Patient/guardian urged not to elope from the ED as their condition may be serious if not clinically assessed and managed. Initial orders include:
[2019-01-02 17:47] LABS: Eosinophils % (Auto) 0.5 % (0.0-4.3); Hematocrit 37.4 % (30.3-42.9); Hemoglobin 12.3 gm/dl (10.1-14.3); Lymphocytes # (Auto) 1.4 K/mm3 (1.2-5.4); Lymphocytes % (Auto) 31.6 % (13.4-35.0); Mean Corpuscular HGB Conc 33 % (30-34); Mean Corpuscular Volume 85 fl (79-97); Monocytes # (Auto) 0.7 K/mm3 (0.0-0.8); Monocytes % (Auto) 15.7 % (0.0-7.3); Platelet Count 210 K/mm3 (140-440); Red Cell Distribution Width 14.1 % (13.2-15.2)
--- NOTE | 2019-01-02 18:33 | Emergency Department Report ---
ED Abdominal Pain HPI - General Chief Complaint: Sore Throat Stated Complaint: BACK PAIN/ABD PAIN/VOMITING Time Seen by Provider: 01/02/19 17:19 Source: patient Mode of arrival: Ambulatory Limitations: No Limitations - History of Present Illness Initial Comments: Patient reports sore throat, abdominal/back pain and vaginal discharge that started two days ago MD Complaint: abdominal pain, other (sore throat) Location: suprapubic Radiation: back Severity: moderate Severity scale (0 -10): 7 Quality: cramping, aching Consistency: constant Improves With: nothing Worsens With: nothing Context: other (vaginal discharge) Associated Symptoms: denies other symptoms. denies: nausea, vomiting, diarrhea, fever, chills, constipation, dysuria, hematemesis, hematochezia, melena, hemat uria, anorexia, syncope - Related Data LMP (females 10-50): 1 month Previous Rx's Medication Instructions Recorded Last Taken Type Ferrous Sulfate [Feosol 325 MG tab] 325 mg PO BID #60 tablet 12/22/17 2 Days Ago Rx ~12/28/17 Ibuprofen [Motrin] 800 mg PO Q8HR PRN #30 tablet 12/22/17 2 Days Ago Rx ~12/28/17 oxyCODONE /ACETAMINOPHEN [Percocet 1 tab PO Q6HR PRN #40 tablet 12/22/17 2 Days Ago Rx 5/325] ~12/28/17 Amoxicillin/Potassium Clav 1 each PO BID #14 tablet 12/29/17 Unknown Rx [Augmentin 875-125 Tablet] Amoxicillin [Trimox CAP] 500 mg PO Q8H #30 capsule 10/04/18 Unknown Rx Butalb/Acetamin/Caff 50-325-40 1 each PO Q4H PRN #12 tablet 10/04/18 Unknown Rx [Fioricet 50-325-40] Ketorolac [Toradol] 10 mg PO Q8H PRN #20 tablet 10/04/18 Unknown Rx Promethazine [Phenergan] 25 mg PO Q6HR PRN #20 tab 10/04/18 Unknown Rx Fluconazole [Diflucan TAB] 150 mg PO ONCE #1 tablet 11/06/18 Unknown Rx metroNIDAZOLE [Flagyl TAB] 500 mg PO Q12HR #14 tab 11/06/18 Unknown Rx HYDROcodone/APAP 5-325 [[place] 1 each PO Q6HR PRN #15 tablet 01/01/19 Unknown Rx 5/325] DOXYCYCLINE Hyclate [Vibramycin 100 mg PO Q12HR 28 Days #14 capsule 01/02/19 Unknown Rx CAP] Ibuprofen [Motrin 600 MG tab] 600 mg PO Q8H PRN #30 tablet 01/02/19 Unknown Rx Allergies Allergy/AdvReac Type Severity Reaction Status Date / Time No Known Allergies Allergy Verified 11/06/18 08:15 ED Review of Systems ROS: Stated complaint: BACK PAIN/ABD PAIN/VOMITING Other details as noted in HPI Constitutional: denies: chills, fever Eyes: denies: eye pain, eye discharge, vision change ENT: denies: ear pain, throat pain Respiratory: denies: cough, orthopnea, shortness of breath, SOB with exertion, SOB at rest, stridor, wheezing Cardiovascular: denies: chest pain, palpitations, dyspnea on exertion, orthopnea Endocrine: no symptoms reported Gastrointestinal: denies: abdominal pain, nausea, diarrhea Genitourinary: discharge (vaginal ). denies: urgency, dysuria Musculoskeletal: back pain. denies: joint swelling, arthralgia Skin: denies: rash, lesions Neurological: denies: headache, weakness, numbness, paresthesias, confusion Psychiatric: denies: anxiety, depression Hematological/Lymphatic: denies: easy bleeding, easy bruising ED Past Medical Hx - Past Medical History Previous Medical History?: Yes Hx Hypertension: No Hx Congestive Heart Failure: No Hx Diabetes: No Hx Deep Vein Thrombosis: No Hx Renal Disease: No Hx Sickle Cell Disease: No Hx Seizures: No Hx Psychiatric Treatment: Yes (Anxiety) Hx Asthma: No Hx COPD: No Hx Dementia: No Hx HIV: No Additional medical history: vaginal delivery 2013, 2015 - Surgical History Past Surgical History?: Yes Additional Surgical History: C section - Social History Smoking Status: Never Smoker Substance Use Type: None - Medications Home Medications: Home Medications Medication Instructions Recorded Confirmed Last Taken Type Ferrous Sulfate [Feosol 325 MG tab] 325 mg PO BID #60 tablet 12/22/17 12/30/17 2 Days Ago Rx ~12/28/17 Ibuprofen [Motrin] 800 mg PO Q8HR PRN #30 tablet 12/22/17 12/30/17 2 Days Ago Rx ~12/28/17 oxyCODONE /ACETAMINOPHEN [Percocet 1 tab PO Q6HR PRN #40 tablet 12/22/17 12/30/17 2 Days Ago Rx 5/325] ~12/28/17 Amoxicillin/Potassium Clav 1 each PO BID #14 tablet 12/29/17 12/30/17 Unknown Rx [Augmentin 875-125 Tablet] Amoxicillin [Trimox CAP] 500 mg PO Q8H #30 capsule 10/04/18 Unknown Rx Butalb/Acetamin/Caff 50-325-40 1 each PO Q4H PRN #12 tablet 10/04/18 Unknown Rx [Fioricet 50-325-40] Ketorolac [Toradol] 10 mg PO Q8H PRN #20 tablet 10/04/18 Unknown Rx Promethazine [Phenergan] 25 mg PO Q6HR PRN #20 tab 10/04/18 Unknown Rx Fluconazole [Diflucan TAB] 150 mg PO ONCE #1 tablet 11/06/18 Unknown Rx metroNIDAZOLE [Flagyl TAB] 500 mg PO Q12HR #14 tab 11/06/18 Unknown Rx HYDROcodone/APAP 5-325 [[place] 1 each PO Q6HR PRN #15 tablet 01/01/19 Unknown Rx 5/325] DOXYCYCLINE Hyclate [Vibramycin 100 mg PO Q12HR 28 Days #14 capsule 01/02/19 Unknown Rx CAP] Ibuprofen [Motrin 600 MG tab] 600 mg PO Q8H PRN #30 tablet 01/02/19 Unknown Rx ED Physical Exam - General Limitations: No Limitations General appearance: alert, in no apparent distress - Respiratory Respiratory exam: Present: normal lung sounds bilaterally. Absent: respiratory distress, wheezes, rales, rhonchi, stridor, chest wall tenderness, accessory muscle use, decreased breath sounds, prolonged expiratory - Cardiovascular Cardiovascular Exam: Present: regular rate, normal rhythm, normal heart sounds. Absent: systolic murmur, diastolic murmur, rubs, gallop - GI/Abdominal GI/Abdominal exam: Present: soft, tenderness (suprapubic), normal bowel sounds. Absent: guarding, rebound, rigid, hyperactive bowel sounds, hypoactive bowel sounds, organomegaly, mass, bruit, pulsatile mass, hernia - Expanded GI/Abdominal Exam Expanded GI/Abdominal exam: Absent: psoas sign, obturator sign, heel tap sign, Hare's sign, Rovsing's sign, tenderness at [place], ascites - External exam: Present: normal external exam. Absent: erythema, swelling, lesions, lacerations, ecchymosis, bleeding Speculum exam: Present: vaginal discharge (scant creamy). Absent: erythema, cervical discharge, vaginal bleeding, foreign body, tissue, laceration Bi-manual exam: Present: cervical motion tendernes. Absent: adnexal tenderness, adnexal mass, uterine enlargement, uterine tenderness - Extremities Exam Extremities exam: Present: normal inspection, full ROM, normal capillary refill. Absent: tenderness, pedal edema, joint swelling, calf tenderness - Back Exam Back exam: Present: normal inspection, full ROM, tenderness. Absent: CVA tenderness (R), CVA tenderness (L), muscle spasm, paraspinal tenderness, vertebral tenderness, rash noted - Neurological Exam Neurological exam: Present: alert, oriented X3, CN II-XII intact, normal gait, reflexes normal. Absent: motor sensory deficit - Psychiatric Psychiatric exam: Present: normal affect, normal mood - Skin Skin exam: Present: warm, dry, intact, normal color. Absent: rash ED Course Vital Signs 01/02/19 17:20 Temperature 98.8 F Pulse Rate 94 H Respiratory 20 Rate Blood Pressure 115/65 O2 Sat by Pulse 98 Oximetry ED Medical Decision Making - Lab Data Result diagrams: 01/02/19 17:32 Labs 01/02/19 01/02/19 17:32 17:32 WBC 4.5 RBC 4.40 Hgb 12.3 Hct 37.4 MCV 85 MCH 28 MCHC 33 RDW 14.1 Plt Count 210 Lymph % (Auto) 31.6 [place] % (Auto) 15.7 H Eos % (Auto) 0.5 Baso % (Auto) 1.0 Lymph # 1.4 [place] # 0.7 Eos # 0.0 Baso # 0.0 Seg Neutrophils % 51.2 Seg Neutrophils # 2.3 HCG, Qual Negative > or = 20% clue cells seen No trichmoniasis or yeast seen Vital Signs 01/02/19 17:20 Temperature 98.8 F Pulse Rate 94 H Respiratory 20 Rate Blood Pressure 115/65 O2 Sat by Pulse 98 Oximetry - Medical Decision Making During the course of ED, all other systems are unremarkable except for documentation in HPI. Upon further investigation, patient was seen and treated in the ED the prior day, however she left before receiving her discharge prescriptions. Therefore, she was sent home with a prescription for Doxycycline, instructed to follow up with [employer] [facility], she verbalized understanding - Differential Diagnosis STIS, UTI Critical care attestation.: If time is entered above; I have spent that time in minutes in the direct care of this critically ill patient, excluding procedure time. ED Disposition Clinical Impression: PID (pelvic inflammatory disease) Pharyngitis Qualifiers: Pharyngitis/tonsillitis etiology: unspecified etiology Qualified Code(s): J02.9 - Acute pharyngitis, unspecified Disposition: TO HOME OR SELFCARE Is pt being admited?: No Does the pt Need Aspirin: No Condition: Stable Instructions: Pelvic Inflammatory Disease (ED), Pharyngitis (ED) Additional Instructions: Take medication as directed. Have sexual partner seek treatment for STIs' at the local health department. Prescriptions: Ibuprofen [Motrin 600 MG tab] 600 mg PO Q8H PRN #30 tablet PRN Reason: Pain DOXYCYCLINE Hyclate [Vibramycin CAP] 100 mg PO Q12HR 28 Days #14 capsule Referrals: PUNEET GUY MD [Primary Care Provider] - 3-5 Days Time of Disposition: 19:13
[2019-01-02] MEDS ORDERED: ZITHROMAX PO ONE (18:50)
[2019-01-02] MEDS ORDERED: XYLOCAINE 1% MPF 5 mL INFILTRATI ONE (18:50)
[2019-01-02] MEDS ORDERED: ROCEPHIN IM ONE (18:50)
== END 2019-01-02 21:53 | disposition home or self-care (01) ==
LOC: ED 16:54
DX: N73.9 Female pelvic inflammatory disease, unspecified (principal); J02.9 Acute pharyngitis, unspecified; F41.9 Anxiety disorder, unspecified; Z98.890 Other specified postprocedural states; Z79.899 Other long term (current) drug therapy
CPT/HCPCS: 36415; 84703; 85025; 87210; 87591

== ENCOUNTER 2019-04-21 05:12 | Emergency (ER) | payer MEDICAID ==
[2019-04-21 05:20] VITALS: BP 138/91
--- NOTE | 2019-04-21 07:39 | Emergency Department Report ---
ED General Adult HPI - General Chief complaint: Upper Respiratory Infection Stated complaint: CHEST PAIN/HEADACHE/NAUSEA/ABD PAIN/DISCHARGE Time Seen by Provider: 04/21/19 07:08 Source: patient Mode of arrival: Ambulatory Limitations: No Limitations - History of Present Illness Initial comments: This is a 24-year-old -[place] female who presents to the emergency room with cough, chills, myalgia, and vaginal discharge for one week. Past history of anxiety. Patient states she's taken Motrin and Tylenol with minimal improvement in symptoms. She denies risk of . She denies chest pain, headache, palpitations, nausea, vomiting, or diarrhea. Onset/Timin -: week(s) Associated Symptoms: cough, fever/chills, other (myalgia and vaginal discharge). denies: confusion, chest pain, diaphoresis, headaches, loss of appetite, malaise, nausea/vomiting, rash, seizure, shortness of breath, syncope, weakness Treatments Prior to Arrival: NSAID - Related Data Previous Rx's Medication Instructions Recorded Last Taken Type Ferrous Sulfate [Feosol 325 MG tab] 325 mg PO BID #60 tablet 12/22/17 2 Days Ago Rx ~12/28/17 Ibuprofen [Motrin] 800 mg PO Q8HR PRN #30 tablet 12/22/17 2 Days Ago Rx ~12/28/17 oxyCODONE /ACETAMINOPHEN [Percocet 1 tab PO Q6HR PRN #40 tablet 12/22/17 2 Days Ago Rx 5/325] ~12/28/17 Amoxicillin/Potassium Clav 1 each PO BID #14 tablet 12/29/17 Unknown Rx [Augmentin 875-125 Tablet] Amoxicillin [Trimox CAP] 500 mg PO Q8H #30 capsule 10/04/18 Unknown Rx Butalb/Acetamin/Caff 50-325-40 1 each PO Q4H PRN #12 tablet 10/04/18 Unknown Rx [Fioricet 50-325-40] Ketorolac [Toradol] 10 mg PO Q8H PRN #20 tablet 10/04/18 Unknown Rx Promethazine [Phenergan] 25 mg PO Q6HR PRN #20 tab 10/04/18 Unknown Rx Fluconazole [Diflucan TAB] 150 mg PO ONCE #1 tablet 11/06/18 Unknown Rx metroNIDAZOLE [Flagyl TAB] 500 mg PO Q12HR #14 tab 11/06/18 Unknown Rx HYDROcodone/APAP 5-325 [Hume 1 each PO Q6HR PRN #15 tablet 01/01/19 Unknown Rx 5/325] DOXYCYCLINE Hyclate [Vibramycin 100 mg PO Q12HR 28 Days #14 capsule 01/02/19 Unknown Rx CAP] Ibuprofen [Motrin 600 MG tab] 600 mg PO Q8H PRN #30 tablet 01/02/19 Unknown Rx metroNIDAZOLE [Flagyl TAB] 500 mg PO Q12HR #14 tab 04/21/19 Unknown Rx Allergies Allergy/AdvReac Type Severity Reaction Status Date / Time No Known Allergies Allergy Verified 11/06/18 08:15 ED Review of Systems ROS: Stated complaint: CHEST PAIN/HEADACHE/NAUSEA/ABD PAIN/DISCHARGE Other details as noted in HPI Constitutional: chills. denies: fever ENT: congestion. denies: ear pain, throat pain Respiratory: cough. denies: shortness of breath, wheezing Cardiovascular: denies: chest pain, palpitations Gastrointestinal: denies: abdominal pain, nausea, diarrhea Genitourinary: discharge. denies: urgency, dysuria Musculoskeletal: myalgia. denies: back pain, joint swelling, arthralgia Skin: denies: rash, lesions Neurological: denies: headache, weakness, paresthesias Psychiatric: denies: anxiety, depression ED Past Medical Hx - Past Medical History Previous Medical History?: Yes Hx Hypertension: No Hx Congestive Heart Failure: No Hx Diabetes: No Hx Deep Vein Thrombosis: No Hx Renal Disease: No Hx Sickle Cell Disease: No Hx Seizures: No Hx Psychiatric Treatment: Yes (Anxiety) Hx Asthma: No Hx COPD: No Hx Dementia: No Hx HIV: No Additional medical history: vaginal delivery 2013, 2015 - Surgical History Past Surgical History?: Yes Additional Surgical History: C section - Social History Smoking Status: Current Every Day Smoker Substance Use Type: None - Medications Home Medications: Home Medications Medication Instructions Recorded Confirmed Last Taken Type Ferrous Sulfate [Feosol 325 MG tab] 325 mg PO BID #60 tablet 12/22/17 12/30/17 2 Days Ago Rx ~12/28/17 Ibuprofen [Motrin] 800 mg PO Q8HR PRN #30 tablet 12/22/17 12/30/17 2 Days Ago Rx ~12/28/17 oxyCODONE /ACETAMINOPHEN [Percocet 1 tab PO Q6HR PRN #40 tablet 12/22/17 12/30/17 2 Days Ago Rx 5/325] ~12/28/17 Amoxicillin/Potassium Clav 1 each PO BID #14 tablet 12/29/17 12/30/17 Unknown Rx [Augmentin 875-125 Tablet] Amoxicillin [Trimox CAP] 500 mg PO Q8H #30 capsule 10/04/18 Unknown Rx Butalb/Acetamin/Caff 50-325-40 1 each PO Q4H PRN #12 tablet 10/04/18 Unknown Rx [Fioricet 50-325-40] Ketorolac [Toradol] 10 mg PO Q8H PRN #20 tablet 10/04/18 Unknown Rx Promethazine [Phenergan] 25 mg PO Q6HR PRN #20 tab 10/04/18 Unknown Rx Fluconazole [Diflucan TAB] 150 mg PO ONCE #1 tablet 11/06/18 Unknown Rx metroNIDAZOLE [Flagyl TAB] 500 mg PO Q12HR #14 tab 11/06/18 Unknown Rx HYDROcodone/APAP 5-325 [Hume 1 each PO Q6HR PRN #15 tablet 01/01/19 Unknown Rx 5/325] DOXYCYCLINE Hyclate [Vibramycin 100 mg PO Q12HR 28 Days #14 capsule 01/02/19 Unknown Rx CAP] Ibuprofen [Motrin 600 MG tab] 600 mg PO Q8H PRN #30 tablet 01/02/19 Unknown Rx metroNIDAZOLE [Flagyl TAB] 500 mg PO Q12HR #14 tab 04/21/19 Unknown Rx ED Physical Exam - General Limitations: No Limitations General appearance: alert, in no apparent distress - ENT ENT exam: Present: normal orophraynx, mucous membranes moist, TM's normal bilaterally, normal external ear exam, other (turbinates congested with clear discharge) - Neck Neck exam: Present: normal inspection - Respiratory Respiratory exam: Present: normal lung sounds bilaterally. Absent: respiratory distress - Cardiovascular Cardiovascular Exam: Present: regular rate, normal rhythm. Absent: systolic murmur, diastolic murmur, rubs, gallop - GI/Abdominal GI/Abdominal exam: Present: soft, normal bowel sounds. Absent: distended, tenderness, guarding, rebound, rigid - External exam: Present: normal external exam. Absent: erythema, swelling, lesions, lacerations, ecchymosis Speculum exam: Present: vaginal discharge (curdy white). Absent: cervical discharge, vaginal bleeding, foreign body, tissue, laceration Bi-manual exam: Present: normal bi-manual exam - Extremities Exam Extremities exam: Present: normal inspection - Back Exam Back exam: Absent: CVA tenderness (R), CVA tenderness (L) - Neurological Exam Neurological exam: Present: alert, oriented X3, normal gait - Psychiatric Psychiatric exam: Present: normal affect, normal mood - Skin Skin exam: Present: warm, dry, intact, normal color. Absent: rash ED Course Vital Signs 04/21/19 05:18 Temperature 99.0 F Pulse Rate 92 H Respiratory 18 Rate Blood Pressure 138/91 O2 Sat by Pulse 100 Oximetry ED Medical Decision Making - Medical Decision Making 24 y.o. female that presents with upper respiratory symptoms and vaginal discharge for one week. Patient examined by me and stable. VSS and patient in no acute distress. No history of immunocompromise. Nontoxic appearance. Patient no trismus, no airway compromise. Pelvic exam performed to obtain wet prep and gonorrhea and chlamydia. Wet prep positive for clue stills negative Trichomonas in yeast. Gonorrhea and chlamydia is pending. Given History and Exam I have low suspicion for cause of gonorrhea and chlamydia, Epiglottitis, Bacterial Tracheitis, acute HIV, or Strep throat. Start short course of antibiotics. Instructed to continue insidious and [id number] cold and flu medication for upper respiratory infection. Reviewed results with patient. Discharge home with prompt outpatient PCP follow up; return precautions discussed. Critical care attestation.: If time is entered above; I have spent that time in minutes in the direct care of this critically ill patient, excluding procedure time. ED Disposition Clinical Impression: Vaginal discharge, Bacterial vaginitis, Upper respiratory infection, viral Disposition: DC-01 TO HOME OR SELFCARE Is pt being admited?: No Condition: Stable Instructions: Bacterial Vaginosis (ED), Cold Symptoms (ED), Upper Respiratory Infection (ED) Additional Instructions: Increase fluid intake and rest. Wash hands frequently. Continue taking [id number] cold and flu medication, Tylenol or ibuprofen for symptomatic relief of upper respiratory infection. F/U with Primary Care Provider. I have also provided a list of [facility] for follow-up. Return to ER if fever, shortness of breath, or difficulty breathing after 48 hours of supportive care. Prescriptions: metroNIDAZOLE [Flagyl TAB] 500 mg PO Q12HR #14 tab Referrals: [facility] [Outside] - 3-5 Days [facility] [Outside] - 3-5 Days [facility] [Provider Group] - 3-5 Days [facility] [Provider Group] - 3-5 Days Forms: STI Treatment and Prevention Time of Disposition: 08:53
== END 2019-04-21 09:02 | disposition home or self-care (01) ==
LOC: ED 05:12
DX: J06.9 Acute upper respiratory infection, unspecified (principal); N76.0 Acute vaginitis; R11.0 Nausea; F41.9 Anxiety disorder, unspecified; F17.200 Nicotine dependence, unspecified, uncomplicated; Z79.899 Other long term (current) drug therapy; Z98.890 Other specified postprocedural states
CPT/HCPCS: 87210; 87591

== ENCOUNTER 2019-04-22 14:46 | Emergency (ER) | payer MEDICAID ==
[2019-04-22 15:04] VITALS: BP 116/75
--- NOTE | 2019-04-22 15:04 | Event Note ---
ED Screening Note ED Screening Note: left pelvic pain n/v, 5 days late on period, concerned for ectopic This initial assessment/diagnostic orders/clinical plan/treatment(s) is/are subject to change based on patients health status, clinical progression and re- assessment by fellow clinical providers in the ED. Further treatment and workup at subsequent clinical providers discretion. Patient/guardian urged not to elope from the ED as their condition may be serious if not clinically assessed and managed. Initial orders include: cbc serum preg bmp ua
[2019-04-22 15:32] LABS: Hematocrit 36.8 % (30.3-42.9); Hemoglobin 12.1 gm/dl (10.1-14.3); Mean Corpuscular HGB Conc 33 % (30-34); Mean Corpuscular Volume 82 fl (79-97); Platelet Count 245 K/mm3 (140-440); Red Blood Count 4.52 M/mm3 (3.65-5.03); Red Cell Distribution Width 14.7 % (13.2-15.2)
[2019-04-22 15:53] LABS: BUN/Creatinine Ratio 10; Blood Urea Nitrogen 8 mg/dL (7-17); Calcium 10.1 mg/dL (8.4-10.2); Hemolysis Index 10
[2019-04-22 16:13] LABS: Basophils % (Manual) 0 % (0.0-1.8); Eosinophils % (Manual) 0 % (0.0-4.3); Total Cells Counted 100
[2019-04-22 16:14] LABS: Anisocytosis Few
--- NOTE | 2019-04-22 16:56 | Emergency Department Report ---
Minor Respiratory - HPI Chief Complaint: Upper Respiratory Infection Stated Complaint: STOMACH PAIN, VOMITTING Time Seen by Provider: 04/22/19 16:49 Duration: 3 Days Pain Location: Other Severity: mild Minor Respiratory: Yes Rhinorrhea, Yes Able to Tolerate Fluids, Yes Cough, No Sore Throat, No Ear Pain, No Sick Contacts, No Hemoptysis, No Chest Pain, No Shortness of Breath, No Fever Other History: 24 yo AA female comes to ER with several day hx of cough. She has chills and thinks she has an ectopic because she is 4 days late for her menses. Endorses nausea and loose stools. NO vag bleeding or discharge. No abd pain. No home preg test. She is ambulatory and non toxic on exam. ED Review of Systems ROS: Stated complaint: STOMACH PAIN, VOMITTING Other details as noted in HPI Comment: All other systems reviewed and negative ED Past Medical Hx - Past Medical History Previous Medical History?: Yes Hx Hypertension: No Hx Congestive Heart Failure: No Hx Diabetes: No Hx Deep Vein Thrombosis: No Hx Renal Disease: No Hx Sickle Cell Disease: No Hx Seizures: No Hx Psychiatric Treatment: Yes (Anxiety) Hx Asthma: No Hx COPD: No Hx Dementia: No Hx HIV: No Additional medical history: vaginal delivery 2013, 2015 - Surgical History Past Surgical History?: Yes Additional Surgical History: C section - Family History Family history: no significant - Social History Smoking Status: Never Smoker Substance Use Type: None - Medications Home Medications: Home Medications Medication Instructions Recorded Confirmed Last Taken Type Ondansetron [Zofran Odt] 4 mg PO Q8HR PRN #10 tab.rapdis 04/22/19 Unknown Rx Minor Respiratory Exam - Exam General: Vital signs noted. No distress. Alert and acting appropriately. HEENT: Yes Moist Mucous Membranes, No Pharyngeal Erythema, No Pharyngeal Exudates, No Rhinorrhea, No Conjuctival Injection, No Frontal Tenderness, No Maxillary Tenderness Ear: Neither TM Bulge, Neither TM Erythema, Neither EAC Pain, Neither EAC Discharge Neck: Yes Supple, No Adenopathy Lungs: Yes Good Air Exchange, No Wheezes, No Ronchi, No Stridor, No Cough, No Labored Respirations, No Retractions, No Use of Accessory Muscles, No Other Abnormal Lung Sounds Heart: Yes Regular, No Murmur Abdomen: Yes Normal Bowel Sounds, No Tenderness, No Peritoneal Signs Skin: No Rash, No Edema Neurologic: Alert and oriented, no deficits. Musculoskeletal: Unremarkable. ED Course Vital Signs 04/22/19 15:02 Temperature 99.2 F Pulse Rate 102 H Respiratory 18 Rate Blood Pressure 116/75 O2 Sat by Pulse 100 Oximetry ED Medical Decision Making - Lab Data Result diagrams: 04/22/19 15:21 04/22/19 15:21 - Medical Decision Making Labs 04/22/19 04/22/19 04/22/19 15:21 15:21 15:21 WBC 4.6 RBC 4.52 Hgb 12.1 Hct 36.8 MCV 82 MCH 27 L MCHC 33 RDW 14.7 Plt Count 245 [place] % (Auto) Clinical Program Coordinator Add Manual Diff Complete Total Counted 100 Seg Neuts % (Manual) 77.0 H Band Neutrophils % 0 Lymphocytes % (Manual) 9.0 L Reactive Lymphs % (Man) 0 Monocytes % (Manual) 14.0 H Eosinophils % (Manual) 0 Basophils % (Manual) 0 Metamyelocytes % 0 Myelocytes % 0 Promyelocytes % 0 Blast Cells % 0 Nucleated RBC % Not Reportable Seg Neutrophils # Man 3.5 Band Neutrophils # 0.0 Lymphocytes # (Manual) 0.4 L Abs React Lymphs (Man) 0.0 Monocytes # (Manual) 0.6 Eosinophils # (Manual) 0.0 Basophils # (Manual) 0.0 Metamyelocytes # 0.0 Myelocytes # 0.0 Promyelocytes # 0.0 Blast Cells # 0.0 WBC Morphology Not Reportable Hypersegmented Neuts Not Reportable Hyposegmented Neuts Not Reportable Hypogranular Neuts Not Reportable Smudge Cells Not Reportable Toxic Granulation Not Reportable Toxic Vacuolation Not Reportable Dohle Bodies Not Reportable Pelger-Huet Anomaly Not Reportable Osito Rods Not Reportable Platelet Estimate Appears normal Clumped Platelets Not Reportable Plt Clumps, EDTA Not Reportable Large Platelets Not Reportable Giant Platelets Not Reportable Platelet Satelliting Not Reportable Plt Morphology Comment Not Reportable RBC Morphology Not Reportable Dimorphic RBCs Not Reportable Polychromasia Not Reportable Hypochromasia Not Reportable Poikilocytosis Not Reportable Anisocytosis Few Microcytosis Not Reportable Macrocytosis Not Reportable Spherocytes Not Reportable Pappenheimer Bodies Not Reportable Sickle Cells Not Reportable Target Cells Not Reportable Tear Drop Cells Not Reportable Ovalocytes Not Reportable Helmet Cells Not Reportable [place] Bodies Not Reportable [place] Rings Not Reportable Oliverio Cells Not Reportable Bite Cells Not Reportable Crenated Cell Not Reportable Elliptocytes Not Reportable Acanthocytes (Spur) Not Reportable Rouleaux Not Reportable Hemoglobin C Crystals Not Reportable Schistocytes Not Reportable Malaria parasites Not Reportable Jony Bodies Not Reportable Hem Pathologist Commnt No Sodium 134 L Potassium 3.7 Chloride 97.9 L Carbon Dioxide 20 L Anion Gap 20 BUN 8 Creatinine 0.8 Estimated GFR > 60 BUN/Creatinine Ratio 10 Glucose 104 H Calcium 10.1 HCG, Qual Negative Vital Signs 04/22/19 15:02 Temperature 99.2 F Pulse Rate 102 H Respiratory 18 Rate Blood Pressure 116/75 O2 Sat by Pulse 100 Oximetry labs noted hcg neg ambulatory taking po no n/v in ER dc home with dc plan of care and pcp follow up. - Differential Diagnosis ro preg/ urti Critical care attestation.: If time is entered above; I have spent that time in minutes in the direct care of this critically ill patient, excluding procedure time. ED Disposition Clinical Impression: Viral illness, Negative test Disposition: DC-01 TO HOME OR SELFCARE Is pt being admited?: No Does the pt Need Aspirin: No Condition: Stable Instructions: Viral Syndrome (ED) Additional Instructions: MOTRIN OR TYLENOL FOR PAIN OR FEVER STAY WELL HYDRATED MED ORDERED TODAY [facility] FOLLOW UP WITH PCP SATURDAY IF NOT FEELING BETTER REFERRAL BELOW Prescriptions: Ondansetron [Zofran Odt] 4 mg PO Q8HR PRN #10 tab.rapdis PRN Reason: Vomiting Referrals: JOSE HUGHES MD [Staff Physician] - 3-5 Days Time of Disposition: 16:54
== END 2019-04-22 18:00 | disposition home or self-care (01) ==
LOC: ED 14:46
DX: B34.9 Viral infection, unspecified (principal); Z79.899 Other long term (current) drug therapy; Z32.02 Encounter for pregnancy test, result negative
CPT/HCPCS: 36415; 80048; 84703; 85007; 85025